=== PATIENT | male | born 1965 | race American Indian/Alaskan Native ===

== ENCOUNTER 2017-04-16 16:29 | Inpatient (IN) | payer MEDICAID ==
[2017-04-16] MEDS ORDERED: Sodium Chloride 0.9% 10 ML Syringe FLUSH PRN (16:33)
[2017-04-16] MEDS ORDERED: Sodium Chloride 0.9% 2.5 ML Syringe FLUSH PRN (16:33)
--- NOTE | 2017-04-16 16:54 | EDM.PDOC ---
ED HPI GENERAL MEDICAL PROBLEM - General Stated Complaint: INTOXICATED Time Seen by Provider: 04/16/17 16:30 Source of Information: Reports: Patient, Police - History of Present Illness INITIAL COMMENTS - FREE TEXT/NARRATIVE: Presents via EMS accompanied by law enforcement. Law enforcement states that they got a call from a home upper leather sorter who found the patient lying in his yard. Upon arrival they were concerned that the patient was intoxicated or otherwise medically incapacitated and so they called EMS. Upon arrival the patient is alert and cooperative but is quite shaky. He is orientated to person and place and month, not year. He answers all questions appropriately but has to think about the answer for quite a while. - Related Data Allergies Allergy/AdvReac Type Severity Reaction Status Date / Time No Known Allergies Allergy Verified 04/16/17 16:53 Home Meds: Home Meds . [No Known Home Meds] 07/23/16 [History] . [Unable to Verify Home Med List] 12/31/16 [History] Past Medical History - Past Health History Medical/Surgical History: Denies Medical/Surgical History HEENT History: Reports: None Cardiovascular History: Reports: Hypertension, None Respiratory History: Reports: None Gastrointestinal History: Reports: GERD, GI Bleed Genitourinary History: Reports: None Musculoskeletal History: Reports: None Neurological History: Reports: None Psychiatric History: Reports: Addiction Endocrine/Metabolic History: Reports: None Oncologic (Cancer) History: Reports: None Dermatologic History: Reports: None - Past Surgical History Head Surgeries/Procedures: Reports: None Cardiovascular Surgical History: Reports: None Respiratory Surgical History: Reports: None GI Surgical History: Reports: Colonoscopy, EGD Male Surgical History: Reports: None Musculoskeletal Surgical History: Reports: None Social & Family History - Family History Family Medical History: Noncontributory - Tobacco Use Smoking Status *Q: Current Every Day Smoker Years of Tobacco use: 30 Packs/Tins Daily: 1 Used Tobacco, but Quit: No Second Hand Smoke Exposure: No - Caffeine Use Caffeine Use: Reports: None - Alcohol Use Days Per Week of Alcohol Use: 7 Number of Drinks Per Day: 12 Total Drinks Per Week: 84 - Recreational Drug Use Recreational Drug Use: No - Living Situation & Occupation Living situation: Reports: with Family, Other Occupation: Unemployed ED ROS GENERAL - Review of Systems Review Of Systems: See Below Constitutional: Reports: No Symptoms HEENT: Reports: No Symptoms Respiratory: Reports: No Symptoms Cardiovascular: Reports: No Symptoms Endocrine: Reports: No Symptoms GI/Abdominal: Reports: No Symptoms : Reports: No Symptoms Musculoskeletal: Reports: Other (When asked about the bruises on his left shoulder left thorax and abdomen and left hip the patient states that he fell last . He denies any pain or tenderness to those areas) Skin: Reports: Bruising, Other (Unkempt appearance) Neurological: Reports: Tremors Psychiatric: Reports: Other (Slow to answer appropriately) Hematologic/Lymphatic: Reports: No Symptoms Immunologic: Reports: No Symptoms ED EXAM, BEHAVIORAL HEALTH - Physical Exam Exam: See Below Exam Limited By: Intoxication General Appearance: Alert, Other (Takes a couple of minutes for him to answer questions but does so appropriately) Eye Exam: Bilateral Eye: Conjunctival Injection, Other (Dilated 5-6 without accommodation. Light yellow crusty dry discharge around eyes) Ears: Normal External Exam, Normal TMs, Other (A lot of scaling in the canals) Nose: Nasal Drainage (Light yellow and crusty) Throat/Mouth: Normal Inspection Head: Atraumatic, Normocephalic Respiratory/Chest: No Respiratory Distress, Lungs Clear, Normal Breath Sounds Cardiovascular: Normal Peripheral Pulses, Regular Rate, Rhythm, No Murmur GI/Abdominal: Soft, Non-Tender, No Distention (Male) Exam: Normal Inspection Back Exam: Normal Inspection Extremities: Normal Inspection, Other (Left shoulder bruise superiorly. Patient denies tenderness. Full range of motion of the left shoulder without hesitation or limitation) Neurological: Alert, Oriented x 3 (Person place month, not year) Psychiatric: Alert, Flat Affect Skin Exam: Warm, Dry, Intact, Normal color, No rash, Other (Bruise to left superior shoulder, bruises of various colors, to left lower chest left abdomen and left hip) COURSE, BEHAVIORAL HEALTH COMP - Course Vital Signs: Last Vital Signs Temp 98.5 F 04/16/17 16:50 Pulse 89 04/16/17 16:50 Resp 18 04/16/17 16:50 BP 152/94 H 04/16/17 16:50 Pulse Ox 94 L 04/16/17 16:50 Orders, Labs, Meds: Active Orders 24 hr Category Date Time Status EKG 12 Lead [EKG Documentation Completion] [RC] URGENT Care 04/16/17 16:32 Active Head wo Cont [CT] Stat Exams 04/16/17 16:31 Taken Sodium Chloride 0.9% [Saline Flush] Med 04/16/17 16:33 Active 10 ml FLUSH ASDIRECTED PRN Sodium Chloride 0.9% [Saline Flush] Med 04/16/17 16:33 Active 2.5 ml FLUSH ASDIRECTED PRN Saline Lock Insert [OM.PC] Stat Oth 04/16/17 16:33 Ordered Medication Orders Sodium Chloride (Saline Flush) 10 ml FLUSH ASDIRECTED PRN PRN Reason: Keep Vein Open Last Admin: 04/16/17 18:26 Dose: 10 ml Sodium Chloride (Saline Flush) 2.5 ml FLUSH ASDIRECTED PRN PRN Reason: Keep Vein Open Last Admin: 04/16/17 18:26 Dose: 2.5 ml Laboratory Tests 04/16/17 04/16/17 Range/Units 16:53 16:53 WBC 3.17 L (4.0-11.0) K/uL RBC 4.60 (4.50-5.90) M/uL Hgb 11.2 L (13.0-17.0) g/dL Hct 34.4 L (38.0-50.0) % MCV 74.8 L (80.0-98.0) fL MCH 24.3 L (27.0-32.0) pg MCHC 32.6 (31.0-37.0) g/dL RDW Std Deviation 51.5 (28.0-62.0) fl RDW Coeff of Satish 19 H (11.0-15.0) % Plt Count 30 L (150-400) K/uL Neut % (Auto) 68.5 (48.0-80.0) % Lymph % (Auto) 15.5 L (16.0-40.0) % Upton % (Auto) 15.1 H (0.0-15.0) % Eos % (Auto) 0.3 (0.0-7.0) % Baso % (Auto) 0.6 (0.0-1.5) % Neut # (Auto) 2.2 (1.4-5.7) K/uL Lymph # (Auto) 0.5 L (0.6-2.4) K/uL Upton # (Auto) 0.5 (0.0-0.8) K/uL Eos # (Auto) 0.0 (0.0-0.7) K/uL Baso # (Auto) 0.0 (0.0-0.1) K/uL Nucleated RBC % 0.8 /100WBC Nucleated RBCs # 0 K/uL Sodium 124 L (136-146) mmol/L Potassium 3.4 L (3.5-5.1) mmol/L Chloride 88 L (98-110) mmol/L Carbon Dioxide 17 L (21-31) mmol/L BUN 3 L (6.0-23.0) mg/dL Creatinine 0.6 (0.6-1.5) mg/dL Est Cr Clr Drug Dosing TNP Estimated GFR (MDRD) > 60.0 ml/min Glucose 124 H (60-110) mg/dL Calcium 8.4 L (8.8-10.8) mg/dL Total Bilirubin 4.4 H (0.1-1.5) mg/dL AST 166 H (5-40) IU/L ALT 76 H (8-54) IU/L Alkaline Phosphatase 103 (40-150) Total Protein 8.0 (6.0-8.0) g/dL Albumin 3.8 (3.5-5.0) g/dL Globulin 4.2 H (2.0-3.5) g/dL Albumin/Globulin Ratio 0.9 L (1.3-2.8) Medications Generic Name Dose Route Start Last Admin Trade Name Freq PRN Reason Stop Dose Admin Sodium Chloride 10 ml 04/16/17 16:33 04/16/17 18:26 Saline Flush FLUSH 10 ml ASDIRECTED PRN Administration Keep Vein Open Sodium Chloride 2.5 ml 04/16/17 16:33 04/16/17 18:26 Saline Flush FLUSH 2.5 ml ASDIRECTED PRN Administration Keep Vein Open Discontinued Medications Generic Name Dose Route Start Last Admin Trade Name Freq PRN Reason Stop Dose Admin Sodium Chloride 1,000 mls @ 999 mls/hr 04/16/17 17:06 04/16/17 18:25 Normal Saline IV 04/16/17 18:06 999 mls/hr STAT ONE Administration Ondansetron HCl 4 mg 04/16/17 17:51 04/16/17 18:25 Zofran IVPUSH 04/16/17 17:52 4 mg ONETIME ONE Administration Re-Assessment/Re-Exam: Responding more quickly now and is alert and orientated. Departure - Departure Time of Disposition: 18:17 Disposition: Home, Self-Care 01 Condition: fair Clinical Impression: Alcohol intoxication Qualifiers: Complication of substance-induced condition: uncomplicated Qualified Code(s): F10.920 - Alcohol use, unspecified with intoxication, uncomplicated - Discharge Information Instructions: Alcohol Intoxication, [id number] Referrals: Lupe Hager POULTRY PATHOLOGIST [Ordering Only Provider] - Forms: ED Department Discharge Additional Instructions: 1. Please refrain from drinking alcohol--forever. Instead, drink plenty of water and electrolyte solutions such as Gatorade. 2. followup with your primary care provider Lupe Hager. Care Plan Goals: addendum: He is thought to not be able to care for self at home. He still seems slightly confused and cannot safely ambulate. He urinated in the bed. He will be admitted to observation for monitoring. See orders. Dyllan Herrera MD
[2017-04-16] MEDS ORDERED: Sodium Chloride 0.9% 1,000 ML IV ONE (17:06)
[2017-04-16 17:27] LABS: CHLORIDE,CL 88 mmol/L (98-110); SODIUM,NA 124 mmol/L (136-146)
[2017-04-16] MEDS ORDERED: Ondansetron 4 MG/2 ML SDV IVPUSH ONE (17:51)
[2017-04-16] MEDS ORDERED: MVI, Adult with Vitamin K 10 ML, Thiamine 100 MG, Folic Acid 1 MG in Sodium Chloride 0.... IV ONE ×4 (19:46)
[2017-04-16] MEDS ORDERED: Acetaminophen 325 MG Tab PO PRN (19:46)
[2017-04-16] MEDS ORDERED: Temazepam 15 MG Cap PO PRN (19:46)
[2017-04-16] MEDS ORDERED: LORazepam 2 MG/ML MDV IVPUSH PRN (19:46)
[2017-04-16] MEDS ORDERED: Ondansetron 4 MG/2 ML SDV IVPUSH PRN (19:46)
[2017-04-16] MEDS ORDERED: NS + KCl 20mEq/L 1,000 ML IV SCH (20:00)
[2017-04-16] MEDS: Erythromycin Base 0.5% Ophth Oint 1 GM Tube EYEBOTH SCH (21:47)
[2017-04-16 22:14] LABS: CHLORIDE,CL 98 mmol/L (98-110); SODIUM,NA 132 mmol/L (136-146)
[2017-04-16] MEDS ORDERED: Potassium Chloride 20 MEQ Tab.ER PO ONE (22:59)
[2017-04-16] MEDS ORDERED: Erythromycin Base 0.5% Ophth Oint 1 GM Tube ONE (23:30)
[2017-04-17] MEDS ORDERED: Magnesium Sulfate (4.06 MEQ/ML) 1 GM/2 ML SDV IM ONE (00:19)
[2017-04-17] MEDS ORDERED: Potassium Chloride 20 MEQ Tab.ER PO ONE (00:19)
[2017-04-17] MEDS: Pantoprazole 40 MG in Sodium Chloride 0.9% 10 ML IVPUSH SCH ×2 (00:46→08:24)
[2017-04-17] MEDS ORDERED: Magnesium Sulfate/Water 2 GM in Premix Bag 1 BAG IV ONE (01:23)
[2017-04-17 05:14] LABS: CHLORIDE,CL 105 mmol/L (98-110); SODIUM,NA 136 mmol/L (136-146)
[2017-04-17] MEDS: Erythromycin Base 0.5% Ophth Oint 1 GM Tube EYEBOTH SCH (08:06)
[2017-04-17] MEDS ORDERED: D5 1/2 NS w/ 20 mEq/L KCl 1,000 ML IV SCH (08:30)
--- NOTE | 2017-04-17 10:15 | CT ---
EXAM DATE: 04/16/17 PATIENT'S AGE: 52 Patient: HAIDER LOPEZ Facility: [place], [place] Site . Site : 1965 Study: CT Head [id number]/16/2017 5:37:05 PM Ordering Physician: Doctor Manzo Final Report: INDICATION: Found intoxicated, pupils dilated. TECHNIQUE: CT head without i.v. contrast. COMPARISON: None FINDINGS: CSF spaces: Within normal limits for age. Brain parenchyma: The brain parenchyma is normal in appearance with preservation of the mistry-white differentiation. No sign of mass, hemorrhage, or midline shift seen. Skull base and calvarium: Minimal mucosal thickening of the bilateral maxillary sinuses. The mastoid air cells are clear. The visualized orbits are grossly unremarkable. No skull fractures are seen. IMPRESSION: 1. No evidence of acute infarction, intracranial hemorrhage, or mass effect seen. Dictated by Dyllan Barragan MD @ 04/16/2017 6:00:48 PM Dictated by: Dyllan Barragan MD @ 04/16/2017 18:00:54 (Electronic Signature) Report Signed by Proxy. [facility]ENTERRamón
--- NOTE | 2017-04-17 10:21 | CR ---
EXAM DATE: 04/16/17 PATIENT'S AGE: 52 Patient: HAIDER LOPEZ Facility: [place], [place] Site . Site : 1965 Study: XRay Chest [id number]/16/2017 10:29:45 PM Ordering Physician: Sharon Mijares Final Report: Indication: Hypoxia Technique: Chest 1 view. Comparison: December 31, 2016 Findings: Cardiovascular and mediastinum: Heart size and vasculature are normal in caliber and appearance. Mediastinum is within normal limits. Lungs and pleural space: Linear atelectasis at the left lung base. No focal consolidation. No sign of pleural effusion. No pneumothorax. Bones and soft tissues: Remote left mid clavicle fracture. Impression: Linear atelectasis at left lung base. No focal consolidation. Dictated by Marla Ceballos MD @ Apr 16 2017 10:32PM (Electronic Signature) Report Signed by Proxy. [facility]
--- NOTE | 2017-04-17 10:49 | PCM.HP ---
H&P History of Present Illness - General Date of Service: 04/17/17 Admit Problem/Dx: Admission Diagnosis/Problem Admission Diagnosis/Problem Alcohol intoxication Source of Information: Patient History Limitations: Reports: Intoxication - History of Present Illness Initial Comments - Free Text/Narative: 52 yo male was admitted for alcohol intoxication. His BAL was 0.447 at admission. He was given a banana bag in the ED and had electrolytes replaced. At admission 04/16/17 1600 his Hb was 11.2 and his platelet count was 30. Today 0400 his Hb was 9.8 and his platelet count was 13. Patient is more awake and sightly more responsive. He states that his stool has been black for few days. He also has history of esophageal varices which according to him were clipped in December 2016. He denies any vomiting or hematemesis. His last alcoholic beverage was 04/16/17. He state that he had 8 beers but prior to that he was off alcohol for 3 months. - Related Data Allergies/Adverse Reactions: Allergies Allergy/AdvReac Type Severity Reaction Status Date / Time No Known Allergies Allergy Verified 04/16/17 16:53 Home Medications: Home Meds . [No Known Home Meds] 07/23/16 [History] . [Unable to Verify Home Med List] 12/31/16 [History] Past Medical History - Past Health History Medical/Surgical History: Denies Medical/Surgical History HEENT History: Reports: None Cardiovascular History: Reports: Hypertension, None Respiratory History: Reports: None Gastrointestinal History: Reports: GERD, GI Bleed Genitourinary History: Reports: None Musculoskeletal History: Reports: None Neurological History: Reports: None Psychiatric History: Reports: Addiction Endocrine/Metabolic History: Reports: None Oncologic (Cancer) History: Reports: None Dermatologic History: Reports: None - Past Surgical History Head Surgeries/Procedures: Reports: None Cardiovascular Surgical History: Reports: None Respiratory Surgical History: Reports: None GI Surgical History: Reports: Colonoscopy, EGD Male Surgical History: Reports: None Musculoskeletal Surgical History: Reports: None Social & Family History - Family History Family Medical History: Noncontributory - Tobacco Use Smoking Status *Q: Current Every Day Smoker Years of Tobacco use: 30 Packs/Tins Daily: 1 Used Tobacco, but Quit: No Second Hand Smoke Exposure: No - Caffeine Use Caffeine Use: Reports: Coffee - Alcohol Use Days Per Week of Alcohol Use: 7 Number of Drinks Per Day: 10 Total Drinks Per Week: 70 - Recreational Drug Use Recreational Drug Use: No - Living Situation & Occupation Living situation: Reports: with Family, Other Occupation: Unemployed H&P Review of Systems - Review of Systems: Review Of Systems: ROS reveals no pertinent complaints other than HPI. Exam - Exam Exam: See Below - Vital Signs Vital Signs: Last Vital Signs Temp 37.8 C 04/17/17 08:00 Pulse 56 L 04/16/17 20:53 Resp 13 04/17/17 10:00 BP 123/66 04/17/17 10:00 Pulse Ox 94 L 04/17/17 10:00 Weight: 91.4 kg - Exam General: Mild Distress HEENT: Scleral Icterus Neck: Supple Lungs: Clear to Auscultation Cardiovascular: Regular Rhythm, Tachycardia Abdomen: Tenderness Extremities: No: Edema Skin: Petechia, Ecchymosis Neurological: Cranial Nerves Intact, Reflexes Equal Bilateral Neuro Extensive - Mental Status: Disorientation to Time, Slow Response to Commands Psychiatric: Anxious, Withdrawal Symptoms - Patient Data Lab Results last 24 hrs: Laboratory Results - last 24 hr 04/16/17 04/16/17 04/16/17 Range/Units 21:49 21:49 21:49 WBC (4.0-11.0) K/uL RBC (4.50-5.90) M/uL Hgb (13.0-17.0) g/dL Hct (38.0-50.0) % MCV (80.0-98.0) fL MCH (27.0-32.0) pg MCHC (31.0-37.0) g/dL RDW Std Deviation (28.0-62.0) fl RDW Coeff of Satish (11.0-15.0) % Plt Count (150-400) K/uL Add Manual Diff Neutrophils % (Manual) (48.0-80.0) % Lymphocytes % (Manual) (16.0-40.0) % Monocytes % (Manual) (0.0-15.0) % Eosinophils % (Manual) (0.0-7.0) % Nucleated RBC % /100WBC Absolute Seg Neuts Lymphocytes # (Manual) Monocytes # (Manual) Eosinophils # (Manual) Nucleated RBCs # K/uL INR 1.28 H (0.86-1.11) APTT 34.1 H (18.6-31.3) SEC Sodium 132 L (136-146) mmol/L Potassium 3.4 L (3.5-5.1) mmol/L Chloride 98 (98-110) mmol/L Carbon Dioxide 20 L (21-31) mmol/L BUN 3 L (6.0-23.0) mg/dL Creatinine 0.6 (0.6-1.5) mg/dL Est Cr Clr Drug Dosing 149.07 mL/min Estimated GFR (MDRD) > 60.0 ml/min Glucose 99 (60-110) mg/dL Calcium 7.7 L (8.8-10.8) mg/dL Magnesium (1.5-2.3) mEq/L Total Bilirubin (0.1-1.5) mg/dL AST (5-40) IU/L ALT (8-54) IU/L Alkaline Phosphatase (40-150) Total Protein (6.0-8.0) g/dL Albumin (3.5-5.0) g/dL Globulin (2.0-3.5) g/dL Albumin/Globulin Ratio (1.3-2.8) Urine Opiates Screen (NEGATIVE) Ur Oxycodone Screen (NEGATIVE) Urine Methadone Screen (NEGATIVE) Ur Barbiturates Screen (NEGATIVE) Ur Phencyclidine Scrn (NEGATIVE) Ur Amphetamine Screen (NEGATIVE) U Methamphetamines Scrn (NEGATIVE) U Benzodiazepines Scrn (NEGATIVE) U Cocaine Metab Screen (NEGATIVE) U Marijuana (THC) Screen (NEGATIVE) 04/16/17 04/17/17 04/17/17 Range/Units 21:49 04:00 04:39 WBC 2.49 L (4.0-11.0) K/uL RBC 4.01 L (4.50-5.90) M/uL Hgb 9.8 L (13.0-17.0) g/dL Hct 30.8 L (38.0-50.0) % MCV 76.8 L (80.0-98.0) fL MCH 24.4 L (27.0-32.0) pg MCHC 31.8 (31.0-37.0) g/dL RDW Std Deviation 53.7 (28.0-62.0) fl RDW Coeff of Satish 19 H (11.0-15.0) % Plt Count 13 L (150-400) K/uL Add Manual Diff YES Neutrophils % (Manual) 67 (48.0-80.0) % Lymphocytes % (Manual) 17 (16.0-40.0) % Monocytes % (Manual) 14 (0.0-15.0) % Eosinophils % (Manual) 2 (0.0-7.0) % Nucleated RBC % 0.0 /100WBC Absolute Seg Neuts 1.7 Lymphocytes # (Manual) 0.4 Monocytes # (Manual) 0.3 Eosinophils # (Manual) 0 Nucleated RBCs # 0 K/uL INR (0.86-1.11) APTT (18.6-31.3) SEC Sodium (136-146) mmol/L Potassium (3.5-5.1) mmol/L Chloride (98-110) mmol/L Carbon Dioxide (21-31) mmol/L BUN (6.0-23.0) mg/dL Creatinine (0.6-1.5) mg/dL Est Cr Clr Drug Dosing mL/min Estimated GFR (MDRD) ml/min Glucose (60-110) mg/dL Calcium (8.8-10.8) mg/dL Magnesium 1.5 (1.5-2.3) mEq/L Total Bilirubin (0.1-1.5) mg/dL AST (5-40) IU/L ALT (8-54) IU/L Alkaline Phosphatase (40-150) Total Protein (6.0-8.0) g/dL Albumin (3.5-5.0) g/dL Globulin (2.0-3.5) g/dL Albumin/Globulin Ratio (1.3-2.8) Urine Opiates Screen NEGATIVE (NEGATIVE) Ur Oxycodone Screen NEGATIVE (NEGATIVE) Urine Methadone Screen NEGATIVE (NEGATIVE) Ur Barbiturates Screen NEGATIVE (NEGATIVE) Ur Phencyclidine Scrn NEGATIVE (NEGATIVE) Ur Amphetamine Screen NEGATIVE (NEGATIVE) U Methamphetamines Scrn NEGATIVE (NEGATIVE) U Benzodiazepines Scrn NEGATIVE (NEGATIVE) U Cocaine Metab Screen NEGATIVE (NEGATIVE) U Marijuana (THC) Screen NEGATIVE (NEGATIVE) 04/17/17 Range/Units 04:39 WBC (4.0-11.0) K/uL RBC (4.50-5.90) M/uL Hgb (13.0-17.0) g/dL Hct (38.0-50.0) % MCV (80.0-98.0) fL MCH (27.0-32.0) pg MCHC (31.0-37.0) g/dL RDW Std Deviation (28.0-62.0) fl RDW Coeff of Satish (11.0-15.0) % Plt Count (150-400) K/uL Add Manual Diff Neutrophils % (Manual) (48.0-80.0) % Lymphocytes % (Manual) (16.0-40.0) % Monocytes % (Manual) (0.0-15.0) % Eosinophils % (Manual) (0.0-7.0) % Nucleated RBC % /100WBC Absolute Seg Neuts Lymphocytes # (Manual) Monocytes # (Manual) Eosinophils # (Manual) Nucleated RBCs # K/uL INR (0.86-1.11) APTT (18.6-31.3) SEC Sodium 136 (136-146) mmol/L Potassium 4.1 (3.5-5.1) mmol/L Chloride 105 (98-110) mmol/L Carbon Dioxide 21 (21-31) mmol/L BUN 3 L (6.0-23.0) mg/dL Creatinine 0.6 (0.6-1.5) mg/dL Est Cr Clr Drug Dosing 149.07 mL/min Estimated GFR (MDRD) > 60.0 ml/min Glucose 94 (60-110) mg/dL Calcium 7.7 L (8.8-10.8) mg/dL Magnesium 2.1 (1.5-2.3) mEq/L Total Bilirubin 3.8 H (0.1-1.5) mg/dL AST 196 H (5-40) IU/L ALT 70 H (8-54) IU/L Alkaline Phosphatase 88 (40-150) Total Protein 6.6 (6.0-8.0) g/dL Albumin 3.3 L (3.5-5.0) g/dL Globulin 3.3 (2.0-3.5) g/dL Albumin/Globulin Ratio 1.0 L (1.3-2.8) Urine Opiates Screen (NEGATIVE) Ur Oxycodone Screen (NEGATIVE) Urine Methadone Screen (NEGATIVE) Ur Barbiturates Screen (NEGATIVE) Ur Phencyclidine Scrn (NEGATIVE) Ur Amphetamine Screen (NEGATIVE) U Methamphetamines Scrn (NEGATIVE) U Benzodiazepines Scrn (NEGATIVE) U Cocaine Metab Screen (NEGATIVE) U Marijuana (THC) Screen (NEGATIVE) Result Diagrams: 04/17/17 04:39 04/17/17 04:39 *Q Meaningful Use (ADM) - VTE *Q VTE Criteria *Q: - Stroke *Q Stroke Criteria *Q: - AMI *Q AMI Criteria *Q: Problem List Initiated/Reviewed/Updated: Yes Orders Last 24hrs: Active Orders 24 hr Category Date Time Status Admission Status [Patient Status] [ADT] Routine ADT 04/16/17 19:50 Active Oxygen Therapy [RC] PRN Care 04/16/17 19:59 Active Vital Signs [RC] Q1H Care 04/16/17 19:59 Active Abdomen Ltd [US] Routine Exams 04/17/17 20:00 Taken D5 1/2 NS w/ 20 mEq/L KCl 1,000 ml Med 04/17/17 08:30 Active IV ASDIRECTED Pantoprazole [ProTONIX IV] 40 mg Med 04/16/17 23:00 Active Sodium Chloride 0.9% [Normal Saline] 10 ml IVPUSH DAILY Medication Orders Acetaminophen (Tylenol) 650 mg PO Q4H PRN PRN Reason: Pain (Mild 1-3)/fever Pantoprazole Sodium 40 mg/ (Sodium Chloride) 10 mls @ 300 mls/hr IVPUSH DAILY [facility] Last Admin: 04/17/17 08:24 Dose: 300 mls/hr Infusion: 04/17/17 00:48 Dose: 300 mls/hr Admin: 04/17/17 00:46 Dose: 300 mls/hr Potassium Chloride/Dextrose/Sod Cl (D5 1/2 Ns W/ 20 Meq/L Kcl) 1,000 mls @ 75 mls/hr IV ASDIRECTED ELINA Last Admin: 04/17/17 09:27 Dose: 75 mls/hr Lorazepam (Ativan) 0 mg IVPUSH Q4H PRN; Protocol PRN Reason: Other Ondansetron HCl (Zofran) 4 mg IVPUSH Q4H PRN PRN Reason: Nausea Sodium Chloride (Saline Flush) 10 ml FLUSH ASDIRECTED PRN PRN Reason: Keep Vein Open Last Admin: 04/16/17 18:26 Dose: 10 ml Sodium Chloride (Saline Flush) 2.5 ml FLUSH ASDIRECTED PRN PRN Reason: Keep Vein Open Last Admin: 04/16/17 18:26 Dose: 2.5 ml Temazepam (Restoril) 15 mg PO BEDTIME PRN PRN Reason: Sleep Assessment/Plan Comment:: Assessment: 1. Thrombocytopenia 2. Anemia 3. Melena 4. alcohol Intoxication 5. History of alcohol use disorder 6. history of esophageal varices 7. chronic Liver Disease Plan: Due to patients high risk status he will be transferred to [facility]. Receiving Physician is Dr. Hang Crooks. He will be transferred to their ICU. He will be airlifted due to rapid decline of his Platelets and Hb. We will continue D5 1/2 NS with K 20 meq during transfer.
[2017-04-17 11:24] VITALS: BP 129/68
--- NOTE | 2017-04-17 11:32 | US ---
EXAMINATION: Right upper quadrant ultrasound HISTORY: Elevated liver enzymes COMPARISON: None TECHNIQUE: Grayscale and color Doppler images obtained of the right upper quadrant. FINDINGS: The visualized pancreas appears normal. There is at least moderately increased in generali zed echotexture without a focal hepatic mass. The gallbladder wall thickness is normal. No perichole cystic fluid or shadowing gallstones. The common bile duct measures 4 mm. No free pelvic fluid. The right kidney measures 12 cm [id number] without evidence of hydronephrosis. Negative sonographic Mu rphy sign. IMPRESSION: 1. Coarse hepatic echotexture consistent with fatty infiltration or hepatocellular disease.
== END 2017-04-17 11:55 | DRG 897 ==
LOC: MW.ED 16:29 → MW.ICU 19:50
PROVIDERS: ADMIT Family Medicine; ATTEND Family Medicine
DX: F10.920 Alcohol use, unspecified with intoxication, uncomplicated (principal); K92.1 Melena; I85.00 Esophageal varices without bleeding; D69.6 Thrombocytopenia, unspecified; D64.9 Anemia, unspecified; I10 Essential (primary) hypertension; K21.9 Gastro-esophageal reflux disease without esophagitis; F17.200 Nicotine dependence, unspecified, uncomplicated; K76.9 Liver disease, unspecified
CPT/HCPCS: 36415; 70450; 70450-26; 71010; 71010-26; 76705; 76705-26; 80048; 80053; 80305; 83735; 85025; 85610; 85730; 93005; 96361; 96374; 99283; 99285-25; A9270-GY; C9113; G0480; J2405; J3411; J3475; J3480; J7040

== ENCOUNTER 2017-07-18 19:11 | Emergency (ER) | payer MEDICAID ==
--- NOTE | 2017-07-18 19:14 | EDM.PDOC ---
ED HPI GENERAL MEDICAL PROBLEM - General Stated Complaint: UNK Time Seen by Provider: 07/18/17 19:14 Source of Information: Reports: Patient - History of Present Illness INITIAL COMMENTS - FREE TEXT/NARRATIVE: HISTORY AND PHYSICAL: History of present illness: []Patient was found at home by the director medical as he has a court order for psych hold and detox secondary to alcoholism He was found on the couch, intoxicated ...with blood on the couch and his underwear. Patient hasBeen drinking some alcohol he states he has been bleeding since yesterday off and on since yesterday per rectum, ulcer confirms bright red blood however on my guaiac guaiac is trace No fever chills sweats no chest pain shortness breath headache dizziness or palpitation no urine symptoms Review of systems: As per history of present illness and below otherwise all systems reviewed and negative. Past medical history: As per history of present illness and as reviewed below otherwise noncontributory. Surgical history: As per history of present illness and as reviewed below otherwise noncontributory. Social history: No reported history of drug or alcohol abuse. Family history: As per history of present illness and as reviewed below otherwise noncontributory. Physical exam: HEENT: Atraumatic, normocephalic, pupils reactive, negative for conjunctival pallor or scleral icterus, mucous membranes moist, throat clear, neck supple, nontender, trachea midline. Lungs: Clear to auscultation, breath sounds equal bilaterally, chest nontender. Heart: S1S2, regular, negative for clicks, rubs, or JVD. Abdomen: Soft, nondistended, nontender. Negative for masses or hepatosplenomegaly. Negative for costovertebral tenderness. Pelvis: Stable nontender. Genitourinary: Deferred. Rectal: No mass scar or lesion guaiac is trace Extremities: Atraumatic, negative for cords or calf pain. Neurovascular unremarkable. Neuro: Awake, alert, oriented. Cranial nerves II through XII unremarkable. Cerebellum unremarkable. Motor and sensory unremarkable throughout. Exam nonfocal. Diagnostics: []Lab as below EKG Chest 1 view Flat and upright abdomen Therapeutics: []Normal saline 1 L bolus Banana bag 1 50 mL per hour Protonix 80 mg IV Zofran 8 mg IV Impression: Bright red blood per rectum intermittently Alcohol intoxication History of GI bleed, stable at this time Chronic history of baseline Patient does have court order for detox and treatment in [facility], I did speak with Dr. Valadez sepsis care ; more pending Dr. Valadez evaluation and treatment Definitive disposition and diagnosis as appropriate pending reevaluation and review of above. abdominal area Pain Score (Numeric/FACES): 4 - Related Data Allergies Allergy/AdvReac Type Severity Reaction Status Date / Time No Known Allergies Allergy Verified 07/18/17 19:16 Home Meds: Home Meds Ferrous Sulfate 325 mg PO BID 07/18/17 [History] Furosemide [Furosemide] 1 tab PO BID 07/18/17 [History] Nadolol [Nadolol] 1 tab PO BID 07/18/17 [History] Pantoprazole [ProTONIX] 40 mg PO DAILY 07/18/17 [History] Potassium Chloride 1 tab PO DAILY 07/18/17 [History] Spironolactone [Spironolactone] 100 mg PO BID 07/18/17 [History] Past Medical History - Past Health History Medical/Surgical History: Denies Medical/Surgical History HEENT History: Reports: None Cardiovascular History: Reports: Hypertension, None Respiratory History: Reports: None Gastrointestinal History: Reports: GERD, GI Bleed Genitourinary History: Reports: None Musculoskeletal History: Reports: None Neurological History: Reports: None Psychiatric History: Reports: Addiction Endocrine/Metabolic History: Reports: None Oncologic (Cancer) History: Reports: None Dermatologic History: Reports: None - Past Surgical History Head Surgeries/Procedures: Reports: None Cardiovascular Surgical History: Reports: None Respiratory Surgical History: Reports: None GI Surgical History: Reports: Colonoscopy, EGD Male Surgical History: Reports: None Musculoskeletal Surgical History: Reports: None Social & Family History - Family History Family Medical History: Noncontributory - Tobacco Use Smoking Status *Q: Current Every Day Smoker Years of Tobacco use: 30 Packs/Tins Daily: 1 Used Tobacco, but Quit: No Second Hand Smoke Exposure: No - Caffeine Use Caffeine Use: Reports: Coffee - Alcohol Use Days Per Week of Alcohol Use: 7 Number of Drinks Per Day: 10 Total Drinks Per Week: 70 - Recreational Drug Use Recreational Drug Use: No - Living Situation & Occupation Living situation: Reports: with Family, Other Occupation: Unemployed ED ROS GENERAL - Review of Systems Review Of Systems: ROS reveals no pertinent complaints other than HPI. ED EXAM, GENERAL - Physical Exam Exam: See Below Course - Vital Signs Last Recorded V/S: Last Vital Signs Temp 36.8 C 07/18/17 19:16 Pulse 90 07/18/17 20:14 Resp 21 H 07/18/17 20:14 BP 119/66 07/18/17 20:14 Pulse Ox 96 07/18/17 20:14 - Orders/Labs/Meds Orders: Active Orders 24 hr Category Date Time Status EKG Documentation Completion [RC] STAT Care 07/18/17 19:12 Active Abdomen 2V AP Flat Upright [CR] Stat Exams 07/18/17 19:12 Taken Chest 1V Frontal [CR] Stat Exams 07/18/17 19:12 Taken DRUG SCREEN, URINE [URCHEM] Stat Lab 07/18/17 20:44 Received Guaiac [OCCULT BLOOD DIAGNOSTIC] [OP] Stat Lab 07/18/17 20:01 Ordered UA W/MICROSCOPIC [URIN] Stat Lab 07/18/17 20:44 Received MVI, Adult with Vitamin K [Infuvite Adult] 10 ml Med 07/18/17 19:59 Active Thiamine [Vitamin B-1] 100 mg Folic Acid 1 mg Sodium Chloride 0.9% [Normal Saline] 1,000 ml IV ONETIME Medication Orders Multivitamins/Minerals 10 ml/Thiamine HCl 100 mg/ Folic Acid 1 mg/ Sodium Chloride 1,011.2 mls @ 150 mls/hr IV ONETIME ONE Stop: 07/19/17 02:43 Last Admin: 07/18/17 20:25 Dose: 150 mls/hr Labs: Laboratory Tests 07/18/17 07/18/17 07/18/17 Range/Units 19:22 19:22 19:22 WBC 4.10 (4.0-11.0) K/uL RBC 3.80 L (4.50-5.90) M/uL Hgb 12.6 L (13.0-17.0) g/dL Hct 34.1 L (38.0-50.0) % MCV 89.7 (80.0-98.0) fL MCH 33.2 H (27.0-32.0) pg MCHC 37.0 (31.0-37.0) g/dL RDW Std Deviation 47.6 (28.0-62.0) fl RDW Coeff of Satish 15 (11.0-15.0) % Plt Count 68 L (150-400) K/uL MPV 9.70 (7.40-12.00) fL Add Manual Diff YES Neutrophils % (Manual) 64 (48.0-80.0) % Lymphocytes % (Manual) 30 (16.0-40.0) % Monocytes % (Manual) 6 (0.0-15.0) % Nucleated RBC % 0.0 /100WBC Absolute Seg Neuts 2.6 Lymphocytes # (Manual) 1.2 Monocytes # (Manual) 0.2 Nucleated RBCs # 0 K/uL INR 1.14 H (0.86-1.11) Sodium 135 L (136-146) mmol/L Potassium 3.9 (3.5-5.1) mmol/L Chloride 103 (98-110) mmol/L Carbon Dioxide 18 L (21-31) mmol/L BUN 3 L (6.0-23.0) mg/dL Creatinine 0.6 (0.6-1.5) mg/dL Est Cr Clr Drug Dosing 148.70 mL/min Estimated GFR (MDRD) > 60.0 ml/min Glucose 120 H (60-110) mg/dL Calcium 8.0 L (8.8-10.8) mg/dL Total Bilirubin 2.1 H (0.1-1.5) mg/dL AST 59 H (5-40) IU/L ALT 32 (8-54) IU/L Alkaline Phosphatase 101 (40-150) Troponin I (0.0-0.29) NG/ML Total Protein 7.0 (6.0-8.0) g/dL Albumin 3.4 L (3.5-5.0) g/dL Globulin 3.6 H (2.0-3.5) g/dL Albumin/Globulin Ratio 0.9 L (1.3-2.8) TSH 3rd Generation (0.47-5.0) uIU/mL Ethyl Alcohol 401.7 mg/dL Blood Type Antibody Screen 07/18/17 07/18/17 07/18/17 Range/Units 19:22 19:22 19:22 WBC (4.0-11.0) K/uL RBC (4.50-5.90) M/uL Hgb (13.0-17.0) g/dL Hct (38.0-50.0) % MCV (80.0-98.0) fL MCH (27.0-32.0) pg MCHC (31.0-37.0) g/dL RDW Std Deviation (28.0-62.0) fl RDW Coeff of Satish (11.0-15.0) % Plt Count (150-400) K/uL MPV (7.40-12.00) fL Add Manual Diff Neutrophils % (Manual) (48.0-80.0) % Lymphocytes % (Manual) (16.0-40.0) % Monocytes % (Manual) (0.0-15.0) % Nucleated RBC % /100WBC Absolute Seg Neuts Lymphocytes # (Manual) Monocytes # (Manual) Nucleated RBCs # K/uL INR (0.86-1.11) Sodium (136-146) mmol/L Potassium (3.5-5.1) mmol/L Chloride (98-110) mmol/L Carbon Dioxide (21-31) mmol/L BUN (6.0-23.0) mg/dL Creatinine (0.6-1.5) mg/dL Est Cr Clr Drug Dosing mL/min Estimated GFR (MDRD) ml/min Glucose (60-110) mg/dL Calcium (8.8-10.8) mg/dL Total Bilirubin (0.1-1.5) mg/dL AST (5-40) IU/L ALT (8-54) IU/L Alkaline Phosphatase (40-150) Troponin I < 0.10 (0.0-0.29) NG/ML Total Protein (6.0-8.0) g/dL Albumin (3.5-5.0) g/dL Globulin (2.0-3.5) g/dL Albumin/Globulin Ratio (1.3-2.8) TSH 3rd Generation 0.95 (0.47-5.0) uIU/mL Ethyl Alcohol mg/dL Blood Type O POSITIVE Antibody Screen NEGATIVE Meds: Medications Generic Name Dose Route Start Last Admin Trade Name Freq PRN Reason Stop Dose Admin Multivitamins/Minerals 10 ml/ 1,011.2 mls @ 150 mls/hr 07/18/17 19:59 20:25 Thiamine HCl 100 mg/ Folic IV 07/19/17 02:43 150 mls/hr Acid 1 mg/ Sodium Chloride ONETIME ONE Administration Discontinued Medications Generic Name Dose Route Start Last Admin Trade Name Luca PRN Reason Stop Dose Admin Sodium Chloride 1,000 mls @ 999 mls/hr 07/18/17 19:54 07/18/17 20:06 Normal Saline IV 07/18/17 20:54 999 mls/hr STAT ONE Administration Ondansetron HCl 8 mg 07/18/17 19:54 07/18/17 20:06 Zofran IVPUSH 07/18/17 19:55 8 mg ONETIME ONE Administration Pantoprazole Sodium 80 mg 07/18/17 19:54 07/18/17 20:11 Protonix Iv IVPUSH 07/18/17 19:55 80 mg .BOLUS ONE Administration Departure - Departure Time of Disposition: 20:59 Disposition: DC/Tfer to Other 70 Condition: Fair Clinical Impression: Alcohol intoxication Qualifiers: Complication of substance-induced condition: uncomplicated Qualified Code(s): F10.920 - Alcohol use, unspecified with intoxication, uncomplicated GI bleed Qualifiers: GI bleed type/associated pathology: melena Qualified Code(s): K92.1 - Melena - Discharge Information - My Orders Last 24 Hours: My Active Orders 07/18/17 19:12 EKG Documentation Completion [RC] STAT Abdomen 2V AP Flat Upright [CR] Stat Chest 1V Frontal [CR] Stat 07/18/17 19:59 MVI, Adult with Vitamin K [Infuvite Adult] 10 ml Thiamine [Vitamin B-1] 100 mg Folic Acid 1 mg Sodium Chloride 0.9% [Normal Saline] 1,000 ml IV ONETIME 07/18/17 20:01 Guaiac [OCCULT BLOOD DIAGNOSTIC] [OP] Stat 07/18/17 20:44 DRUG SCREEN, URINE [URCHEM] Stat UA W/MICROSCOPIC [URIN] Stat - Assessment/Plan Last 24 Hours: My Active Orders 07/18/17 19:12 EKG Documentation Completion [RC] STAT Abdomen 2V AP Flat Upright [CR] Stat Chest 1V Frontal [CR] Stat 07/18/17 19:59 MVI, Adult with Vitamin K [Infuvite Adult] 10 ml Thiamine [Vitamin B-1] 100 mg Folic Acid 1 mg Sodium Chloride 0.9% [Normal Saline] 1,000 ml IV ONETIME 07/18/17 20:01 Guaiac [OCCULT BLOOD DIAGNOSTIC] [OP] Stat 07/18/17 20:44 DRUG SCREEN, URINE [URCHEM] Stat UA W/MICROSCOPIC [URIN] Stat
[2017-07-18 19:53] LABS: CHLORIDE,CL 103 mmol/L (98-110); SODIUM,NA 135 mmol/L (136-146)
[2017-07-18] MEDS ORDERED: Ondansetron 4 MG/2 ML SDV IVPUSH ONE (19:54)
[2017-07-18] MEDS ORDERED: Pantoprazole 40 MG Vial IVPUSH ONE (19:54)
[2017-07-18] MEDS ORDERED: Sodium Chloride 0.9% 1,000 ML IV ONE (19:54)
[2017-07-18] MEDS ORDERED: MVI, Adult with Vitamin K 10 ML, Thiamine 100 MG, Folic Acid 1 MG in Sodium Chloride 0.... IV ONE ×4 (19:59)
[2017-07-18 21:48] VITALS: BP 132/72
--- NOTE | 2017-07-19 15:42 | CR ---
EXAM DATE: 07/18/17 PATIENT'S AGE: 52 Patient: HAIDER LOPEZ Facility: [place], [place] Site . Site : 1965 Study: XRay Chest [id number]/17/2017 8:09:53 PM Ordering Physician: Doctor Manzo Final Report: INDICATION: Vomiting, bloody stool, ETOH. TECHNIQUE: Chest radiograph 1 view COMPARISON: 04/16/2017. FINDINGS: Cardiovascular and mediastinum: The heart silhouette is normal in size and morphology. The mediastinum is normal in appearance. Lungs and pleural spaces: Stable lung markings in the right hemithorax. Linear atelectasis or scarring in the left lower lung zone. No new focal lung opacity identified. Bones and soft tissues: No significant findings. IMPRESSION: 1. No acute abnormality or interval change from 04/16/2017. Dictated by Dyllan Barragan MD @ 07/18/2017 8:36:49 PM Dictated by: Dyllan Barragan MD @ 07/18/2017 20:36:54 (Electronic Signature) Report Signed by Proxy. [facility]
--- NOTE | 2017-07-19 15:43 | CR ---
EXAM DATE: 07/18/17 PATIENT'S AGE: 52 Patient: HAIDER LOPEZ Facility: [place], [place] Site . Site : 1965 Study: XRay Abdomen [id number]/17/2017 8:28:01 PM Ordering Physician: Doctor Manzo Final Report: HISTORY: Bloody stool and vomiting. FINDINGS: One upright and two supine radiographs of the abdomen demonstrates linear atelectasis or scarring in the left lower lung. Heart is normal size. There is no free air under the diaphragm. There is some small bowel gas present in loops distended 2.5 cm. No air-fluid levels are seen. Stool and gas is seen throughout the colon. Right-sided pelvic phlebolith. IMPRESSION: 1. No free air. 2. No bowel obstruction. There is some small bowel gas present in nondilated loops with stool and gas throughout the colon. Dictated by Aurora Blankenship MD @ 07/18/2017 8:47:57 PM Dictated by: Aurora Blankenship MD @ 07/18/2017 20:48:02 (Electronic Signature) Report Signed by Proxy. [facility]
== END 2017-07-18 21:20 | disposition other institution (70) ==
LOC: MW.ED 19:11
DX: F10.120 Alcohol abuse with intoxication, uncomplicated (principal); K92.1 Melena; K21.9 Gastro-esophageal reflux disease without esophagitis; I10 Essential (primary) hypertension; F17.210 Nicotine dependence, cigarettes, uncomplicated; Z79.899 Other long term (current) drug therapy; Y90.8 Blood alcohol level of 240 mg/100 ml or more
CPT/HCPCS: 36415; 71010; 74020; 80053; 80305; 81001; 84443; 84484; 85025; 85610; 86850; 86900; 86901; 93005; 96365; 96375; 99285; C9113; G0480; J2405; J3411; J7040; 99283

== ENCOUNTER 2017-08-18 21:31 | Emergency (ER) | payer MEDICAID ==
[2017-08-18] MEDS ORDERED: Alum Hydrox/Mag Hydrox/Simeth 15 ML, Metoclopramide 5 MG, Lidocaine 2% 5 ML PO ONE ×3 (21:49)
--- NOTE | 2017-08-18 21:55 | EDM.PDOC ---
ED HPI GENERAL MEDICAL PROBLEM - General Chief Complaint: Abdominal Pain Stated Complaint: INTOXICATED/ABDOMINAL PAIN Time Seen by Provider: 08/18/17 21:43 - History of Present Illness INITIAL COMMENTS - FREE TEXT/NARRATIVE: HISTORY AND PHYSICAL: History of present illness: The patient is a 52-year-old male with a history of alcoholism who just recently finished detox in [facility] in [place]--third week in July-- and presents with complaints of upper abdominal pain and drinking alcohol on a daily basis with his last drink one hour prior to coming here. The patient denies any vomiting or diarrhea and has no chest pain or shortness of breath. He says he feels like his abdomen is bloated. When I question him about the detox which was performed in July he said that he did not follow-up and he began to drink again. Patient does have a history of thrombocytopenia hyperbilirubinemia and esophageal varices/GI bleeding. He denies any vomiting or vomiting of blood. Review of systems: As per history of present illness and below otherwise all systems reviewed and negative. Past medical history: As per history of present illness and as reviewed below otherwise noncontributory. Surgical history: As per history of present illness and as reviewed below otherwise noncontributory. Social history: No reported history of drug or alcohol abuse. Family history: As per history of present illness and as reviewed below otherwise noncontributory. Physical exam: Gen.: Well-developed well-nourished man who has alcohol smell on his breath but is speaking clearly in the ED and nontoxic. Vital signs of the note by me. HEENT: Atraumatic, normocephalic, pupils reactive, negative for conjunctival pallor , air is slight scleral icterus, mucous membranes moist, throat clear, neck supple, nontender, trachea midline. Lungs: Clear to auscultation, breath sounds equal bilaterally, chest nontender. Heart: S1S2, regular rate and rhythm no overt murmurs Abdomen: Soft, nondistended, nontender. Abdomen is some slight tympany on percussion in the upper abdomen but there is no rebound and no guarding. Negative for costovertebral tenderness. Pelvis: Stable nontender. Genitourinary: Deferred. Rectal: Deferred. Extremities: Atraumatic, negative for cords or calf pain. Neurovascular unremarkable. Neuro: Awake, alert, oriented. Cranial nerves II through XII unremarkable. Cerebellum unremarkable. Motor and sensory unremarkable throughout. Exam nonfocal. Diagnostics: CBC CMP amylase lipase CT scan of the abdomen and pelvis Therapeutics: GI cocktail protonix Patient has been up walking in the ED without any evidence of ataxia or unsteadiness. Because of the slight elevation in the lipase I will perform a CT scan and if that is negative I will recommend close follow-up as an outpatient as well as referral to outpatient services to help with his alcoholism. I will also advise follow-up lab testing for his platelet count. He currently is not having any complaints of or evidence of any bleeding. His AST today is 81 and it was higher than that at 196 in April of this year, his bilirubin today is 4.2 with a normal ALT alkaline phosphatase and his Bilirubin ranges anywhere round 2.1-3.8 in the past. He's been cautioned that continuing drinking will continue to cause these liver enzymes to elevate and that he needs follow-up provider at [facility], Kasandra Gautamcock or one of our providers to ensure that these are improving. When I informed the patient that he would be discharged home he seemed very upset and didn't understand why would be discharging him home now. I told him that he needs to go home and sleep and call and follow-up in the clinic tomorrow. Impression: Abdominal pain with history of alcohol use/abuse stable, thrombocytopenia and hyperbilirubinemia likely due to alcohol abuse stable Definitive disposition and diagnosis as appropriate pending reevaluation and review of above. abdominal pain Pain Score (Numeric/FACES): 6 - Related Data Allergies Allergy/AdvReac Type Severity Reaction Status Date / Time No Known Allergies Allergy Verified 08/18/17 21:39 Home Meds: Home Meds Ferrous Sulfate 325 mg PO BID 07/18/17 [History] Furosemide [Furosemide] 1 tab PO BID 07/18/17 [History] Nadolol [Nadolol] 1 tab PO BID 07/18/17 [History] Pantoprazole [ProTONIX] 40 mg PO DAILY 07/18/17 [History] Potassium Chloride 1 tab PO DAILY 07/18/17 [History] Spironolactone [Spironolactone] 100 mg PO BID 07/18/17 [History] Past Medical History - Past Health History Medical/Surgical History: Denies Medical/Surgical History HEENT History: Reports: None Cardiovascular History: Reports: Hypertension, None Respiratory History: Reports: None Gastrointestinal History: Reports: GERD, GI Bleed Genitourinary History: Reports: None Musculoskeletal History: Reports: None Neurological History: Reports: None Psychiatric History: Reports: Addiction Endocrine/Metabolic History: Reports: None Hematologic History: Reports: None Immunologic History: Reports: None Oncologic (Cancer) History: Reports: None Dermatologic History: Reports: None - Infectious Disease History Infectious Disease History: Reports: None - Past Surgical History Head Surgeries/Procedures: Reports: None Cardiovascular Surgical History: Reports: None Respiratory Surgical History: Reports: None GI Surgical History: Reports: Colonoscopy, EGD Male Surgical History: Reports: None Musculoskeletal Surgical History: Reports: None Social & Family History - Family History Family Medical History: Noncontributory - Tobacco Use Smoking Status *Q: Current Every Day Smoker Years of Tobacco use: 30 Packs/Tins Daily: 1 Used Tobacco, but Quit: No Second Hand Smoke Exposure: No - Caffeine Use Caffeine Use: Reports: Coffee - Alcohol Use Days Per Week of Alcohol Use: 7 Number of Drinks Per Day: 10 Total Drinks Per Week: 70 - Recreational Drug Use Recreational Drug Use: No - Living Situation & Occupation Living situation: Reports: with Family, Other Occupation: Unemployed ED ROS GENERAL - Review of Systems Review Of Systems: ROS reveals no pertinent complaints other than HPI. ED EXAM, GENERAL - Physical Exam Exam: See Below (See dictation) Course - Vital Signs Last Recorded V/S: Last Vital Signs Temp 36.1 C 08/18/17 21:39 Pulse 64 08/18/17 21:39 Resp 20 08/18/17 21:39 BP 105/63 08/18/17 21:39 Pulse Ox 98 08/18/17 21:39 - Orders/Labs/Meds Orders: Active Orders 24 hr Category Date Time Status Abdomen Pelvis w Cont [CT] Stat Exams 08/18/17 22:48 Taken Sodium Chloride 0.9% [Saline Flush] Med 08/18/17 22:48 Active 10 ml FLUSH ASDIRECTED PRN Sodium Chloride 0.9% [Saline Flush] Med 08/18/17 22:48 Active 2.5 ml FLUSH ASDIRECTED PRN Saline Lock Insert [OM.PC] Stat Oth 08/18/17 22:48 Ordered Medication Orders Sodium Chloride (Saline Flush) 10 ml FLUSH ASDIRECTED PRN PRN Reason: Keep Vein Open Last Admin: 08/18/17 23:15 Dose: 10 ml Sodium Chloride (Saline Flush) 2.5 ml FLUSH ASDIRECTED PRN PRN Reason: Keep Vein Open Last Admin: 08/18/17 23:15 Dose: 2.5 ml Labs: Laboratory Tests 08/18/17 08/18/17 Range/Units 22:09 22:09 WBC 6.29 (4.0-11.0) K/uL RBC 4.18 L (4.50-5.90) M/uL Hgb 14.5 (13.0-17.0) g/dL Hct 40.5 (38.0-50.0) % MCV 96.9 (80.0-98.0) fL MCH 34.7 H (27.0-32.0) pg MCHC 35.8 (31.0-37.0) g/dL RDW Std Deviation 50.9 (28.0-62.0) fl RDW Coeff of Satish 15 (11.0-15.0) % Plt Count 48 L (150-400) K/uL MPV 10.60 (7.40-12.00) fL Neut % (Auto) 58.7 (48.0-80.0) % Lymph % (Auto) 28.9 (16.0-40.0) % [place] % (Auto) 11.9 (0.0-15.0) % Eos % (Auto) 0.3 (0.0-7.0) % Baso % (Auto) 0.2 (0.0-1.5) % Neut # (Auto) 3.7 (1.4-5.7) K/uL Lymph # (Auto) 1.8 (0.6-2.4) K/uL [place] # (Auto) 0.8 (0.0-0.8) K/uL Eos # (Auto) 0.0 (0.0-0.7) K/uL Baso # (Auto) 0.0 (0.0-0.1) K/uL Nucleated RBC % 0.0 /100WBC Nucleated RBCs # 0 K/uL Sodium 123 L (136-146) mmol/L Potassium 4.3 (3.5-5.1) mmol/L Chloride 94 L (98-110) mmol/L Carbon Dioxide 13 L (21-31) mmol/L BUN 10 (6.0-23.0) mg/dL Creatinine 1.2 (0.6-1.5) mg/dL Est Cr Clr Drug Dosing 76.69 mL/min Estimated GFR (MDRD) > 60.0 ml/min Glucose 212 H (60-110) mg/dL Calcium 9.3 (8.8-10.8) mg/dL Total Bilirubin 4.2 H (0.1-1.5) mg/dL AST 81 H (5-40) IU/L ALT 49 (8-54) IU/L Alkaline Phosphatase 129 (40-150) Total Protein 8.2 H (6.0-8.0) g/dL Albumin 4.0 (3.5-5.0) g/dL Globulin 4.2 H (2.0-3.5) g/dL Albumin/Globulin Ratio 1.0 L (1.3-2.8) Amylase 78 (10-90) U/L Lipase 124 H (7-80) U/L Meds: Medications Generic Name Dose Route Start Last Admin Trade Name Freq PRN Reason Stop Dose Admin Sodium Chloride 10 ml 08/18/17 22:48 08/18/17 23:15 Saline Flush FLUSH 10 ml ASDIRECTED PRN Administration Keep Vein Open Sodium Chloride 2.5 ml 08/18/17 22:48 08/18/17 23:15 Saline Flush FLUSH 2.5 ml ASDIRECTED PRN Administration Keep Vein Open Discontinued Medications Generic Name Dose Route Start Last Admin Trade Name Freq PRN Reason Stop Dose Admin Al Hydroxide/Mg Hydroxide 15 0 ml 08/18/17 21:49 08/18/17 23:18 ml/ Metoclopramide HCl 5 mg/ PO 08/18/17 21:50 25 each Lidocaine HCl 5 ml ONETIME ONE Administration Iopamidol 100 ml 08/19/17 00:18 08/19/17 00:19 Isovue Multipack-370 (76%) IVPUSH 08/19/17 00:19 100 ml ONETIME STA Administration Pantoprazole Sodium 40 mg 08/18/17 22:48 08/18/17 23:16 Protonix Iv IVPUSH 08/18/17 22:49 40 mg .BOLUS ONE Administration Departure - Departure Time of Disposition: 01:27 Disposition: Home, Self-Care 01 Condition: Good Clinical Impression: Alcohol abuse Abdominal pain Qualifiers: Abdominal location: upper abdomen, unspecified Qualified Code(s): R10.10 - Upper abdominal pain, unspecified - Discharge Information Referrals: PCP,None [Primary Care Provider] - Forms: ED Department Discharge Additional Instructions: The following information is given to patients seen in the emergency department who are being discharged to home. This information is to outline your options for follow-up care. We provide all patients seen in our emergency department with a follow-up referral. The need for follow-up, as well as the timing and circumstances, are variable depending upon the specifics of your emergency department visit. If you don't have a primary care physician on staff, we will provide you with a referral. We always advise you to contact your personal physician following an emergency department visit to inform them of the circumstance of the visit and for follow-up with them and/or the need for any referrals to a consulting specialist. The emergency department will also refer you to a specialist when appropriate. This referral assures that you have the opportunity for followup care with a specialist. All of these measure are taken in an effort to provide you with optimal care, which includes your followup. Under all circumstances we always encourage you to contact your private physician who remains a resource for coordinating your care. When calling for followup care, please make the office aware that this follow-up is from your recent emergency room visit. If for any reason you are refused follow-up, please contact the [facility] emergency department at and ask to speak to the emergency department charge nurse. [facility] Primary care- Internal Medicine and Family [address] [address] Please call and follow-up with one of our clinic providers or your provider at [facility] for further evaluation and care of your abdominal complaints as well as your alcohol use/abuse . When you go to the clinic specifically asked for them to repeat your platelet count and liver function tests as these are likely abnormal due to drinking but should be reevaluated. Please stop and refrain from using alcohol and caffeinated products. Push hydration. Return to ER as needed and as discussed. - My Orders Last 24 Hours: My Active Orders 08/18/17 22:48 Abdomen Pelvis w Cont [CT] Stat Sodium Chloride 0.9% [Saline Flush] 10 ml FLUSH ASDIRECTED PRN Sodium Chloride 0.9% [Saline Flush] 2.5 ml FLUSH ASDIRECTED PRN Saline Lock Insert [OM.PC] Stat - Assessment/Plan Last 24 Hours: My Active Orders 08/18/17 22:48 Abdomen Pelvis w Cont [CT] Stat Sodium Chloride 0.9% [Saline Flush] 10 ml FLUSH ASDIRECTED PRN Sodium Chloride 0.9% [Saline Flush] 2.5 ml FLUSH ASDIRECTED PRN Saline Lock Insert [OM.PC] Stat
[2017-08-18 22:39] LABS: CHLORIDE,CL 94 mmol/L (98-110); SODIUM,NA 123 mmol/L (136-146)
[2017-08-18] MEDS ORDERED: Sodium Chloride 0.9% 2.5 ML Syringe FLUSH PRN (22:48)
[2017-08-18] MEDS ORDERED: Sodium Chloride 0.9% 10 ML Syringe FLUSH PRN (22:48)
[2017-08-18] MEDS ORDERED: Pantoprazole 40 MG Vial IVPUSH ONE (22:48)
[2017-08-19] MEDS ORDERED: Iopamidol 755 MG/ML 500 ML Multipack Bottle IVPUSH STA (00:18)
[2017-08-19 01:53] VITALS: BP 110/65
--- NOTE | 2017-08-19 16:33 | CT ---
EXAM DATE: 08/18/17 PATIENT'S AGE: 52 Patient: HAIDER LOPEZ Facility: [place], [place] Site . Site : 1965 Study: CT Abdomen/Pelvis [id number]/18/2017 12:58:44 AM Ordering Physician: VIVEK Final Report: INDICATION: SEVERE ABD PAIN X 3 DAYS TECHNIQUE: CT abdomen and pelvis acquired with IV contrast. COMPARISON: July 23, 2016 FINDINGS: Lower chest: Unremarkable. Liver: Heterogeneous liver with nodular contour liver consistent with cirrhosis. Spleen: Unremarkable. Pancreas: Unremarkable. Gallbladder and bile ducts: Unremarkable. Kidneys: Stable 1.2 cm renal cyst within the inferior pole of the left kidney. Adrenal glands: Unremarkable. GI tract: Small hiatal hernia. Colonic diverticulosis with no evidence acute diverticulitis Appendix is normal. Vascular structures: Atherosclerotic disease. No sign of aneurysm. Lymph nodes: Unremarkable. Miscellaneous: Unremarkable. No free air or significant free fluid. Pelvic Organs: Unremarkable. Bones: Degenerative changes. IMPRESSION: No acute abnormality of the abdomen and pelvis. Dictated by Malvin Pearson MD @ 08/19/2017 1:09:43 AM Dictated by: Malvin Pearson MD @ 08/19/2017 01:09:54 (Electronic Signature) Report Signed by Proxy. [facility]
== END 2017-08-19 01:54 | disposition home or self-care (01) ==
LOC: MW.ED 21:31
DX: R10.10 Upper abdominal pain, unspecified (principal); F10.10 Alcohol abuse, uncomplicated; D69.6 Thrombocytopenia, unspecified; E80.6 Other disorders of bilirubin metabolism; I10 Essential (primary) hypertension; K21.9 Gastro-esophageal reflux disease without esophagitis; F17.210 Nicotine dependence, cigarettes, uncomplicated; Z79.899 Other long term (current) drug therapy
CPT/HCPCS: 36415; 74177; 80053; 82150; 83690; 85025; 96374; 99284; A9270; C9113; Q9967; 99283

== ENCOUNTER 2017-09-11 11:37 | Emergency (ER) | payer MEDICAID ==
[2017-09-11] MEDS ORDERED: Sodium Chloride 0.9% 2.5 ML Syringe FLUSH PRN (11:39)
[2017-09-11] MEDS ORDERED: Sodium Chloride 0.9% 1,000 ML IV ONE ×2 (11:39→15:24)
[2017-09-11] MEDS ORDERED: Sodium Chloride 0.9% 10 ML Syringe FLUSH PRN (11:39)
[2017-09-11] MEDS ORDERED: Pantoprazole 40 MG Vial ONE (11:44)
[2017-09-11] MEDS ORDERED: Pantoprazole 80 MG in Sodium Chloride 0.9% 100 ML IV SCH ×2 (11:45→12:00)
[2017-09-11] MEDS ORDERED: Pantoprazole 40 MG Vial IVPUSH ONE (11:46)
[2017-09-11] MEDS ORDERED: Ondansetron 4 MG/2 ML SDV IVPUSH ONE ×2 (11:48→13:47)
[2017-09-11] MEDS ORDERED: Thiamine 100 MG in Sodium Chloride 0.9% 100 ML IV ONE (11:50)
--- NOTE | 2017-09-11 11:50 | EDM.PDOC ---
ED HPI GENERAL MEDICAL PROBLEM - General Chief Complaint: Gastrointestinal Problem Stated Complaint: BLEEDING Time Seen by Provider: 09/11/17 11:49 Source of Information: Reports: Patient, EMS Notes Reviewed History Limitations: Reports: No Limitations - History of Present Illness INITIAL COMMENTS - FREE TEXT/NARRATIVE: HISTORY AND PHYSICAL: []52-year-old presents per EMS with bleeding His complaints were weakness and dizziness has been drinking today. History of Present Illness: []Patient has history for 5 days of rectal bleeding The esophageal varices that he has has not been bleeding He has been vomiting but it has been bile colored Long history of alcohol abuse last was in rehabilitation [address] [facility] he had a EGD 3 months ago Denies any history of hepatitis Denies any difficulty chewing or swallowing no chest pain Denies pain to his legs ,no edema Patient has history of pneumonia, septicemia, multiple occasions GI bleed Review of Systems: As per history of present illness and below otherwise all systems reviewed and negative. Past medical history: As per history of present illness and as reviewed below otherwise noncontributory. Surgical history: As per history of present illness and as reviewed below otherwise noncontributory. Social history: No reported history of drug or alcohol abuse. Family history: As per history of present illness and as reviewed below otherwise noncontributory. Physical exam: Alert and oriented male .strong odor of alcohol. Answering questions appropriately in full sentences without any shortness of breath HEENT: Atraumatic, normocehpalic, pupils reactive slow, negative for conjunctival pallor or scleral icterus, mucous membranes moist, throat clear, neck supple, nontender, trachea midline. Lungs: Clear to auscultation, breath sounds equal bilaterally, chest non tender. Shallow breath sounds somewhat diminished. Heart: S1S2, regular, negative for clicks, rubs, or JVD. Abdomen: Soft,mildly distended, exquisite tenderness with palpation to the left upper quadrant. Less to the generalized abdomen. Negative for masses or hepatossplenmegaly. Negative for costovertebral tenderness. Pelvis: Stable nontender. Genitourinary: Deferred. Rectal:Hemoccult-positive diarrhea type stool Extremities: Atraumatic, negative for cords or calf pain. Neurovascular unremarkable. Neuro: Awake, alert, oriented. Cranial nerves II through XII unremarkable. Cerebellum unremarkable. Motor and sensory unremarkable throughout. Exam nonfocal. Have discussed this case with Dr. Gottlieb who will come to the emergency room and looked this patient. After examination Dr. Gottlieb has suggested he be transferred to [facility] in [place] we do not have any platelets. This gentlemen's platelet count is 29 Finally his last scope for GI bleed was in [facility] in [place] and for continuation of care would like the curb machine operator to follow-up with him there I discussed this case then per telephone with ER physician Dr. Carter who has accepted this patient for transfer and admitting to the emergency department. Forms were completed for transfer patient Ambulance to the emergency room at [facility] in [facility] patient and his sister are aware of the transfer and are agreeable to this course of action. Diagnostics: [CBC CMP amylase lipase magnesium EKG chest x-ray] Therapeutics: [IVs normal saline Zofran Thiamine] Impression: [Active hepatitis Cirrhosis Cholelithiasis ] Plan: [Transfer patient per ground ambulance to [facility] emergency department] Definitive disposition and diagnosis as appropriate pending reevaluation and review of above. - Related Data Allergies Allergy/AdvReac Type Severity Reaction Status Date / Time No Known Allergies Allergy Verified 09/11/17 12:11 Home Meds: Home Meds Ferrous Sulfate 325 mg PO BID 07/18/17 [History] Furosemide [Furosemide] 1 tab PO BID 07/18/17 [History] Nadolol [Nadolol] 1 tab PO BID 07/18/17 [History] Pantoprazole [ProTONIX] 40 mg PO DAILY 07/18/17 [History] Potassium Chloride 1 tab PO DAILY 07/18/17 [History] Spironolactone [Spironolactone] 100 mg PO BID 07/18/17 [History] Past Medical History - Past Health History Medical/Surgical History: Denies Medical/Surgical History HEENT History: Reports: None Cardiovascular History: Reports: Hypertension, None Respiratory History: Reports: None Gastrointestinal History: Reports: GERD, GI Bleed Genitourinary History: Reports: None Musculoskeletal History: Reports: None Neurological History: Reports: None Psychiatric History: Reports: Addiction Endocrine/Metabolic History: Reports: None Hematologic History: Reports: None Immunologic History: Reports: None Oncologic (Cancer) History: Reports: None Dermatologic History: Reports: None - Infectious Disease History Infectious Disease History: Reports: None - Past Surgical History Head Surgeries/Procedures: Reports: None Cardiovascular Surgical History: Reports: None Respiratory Surgical History: Reports: None GI Surgical History: Reports: Colonoscopy, EGD Male Surgical History: Reports: None Musculoskeletal Surgical History: Reports: None Social & Family History - Family History Family Medical History: Noncontributory - Tobacco Use Smoking Status *Q: Current Every Day Smoker Years of Tobacco use: 30 Packs/Tins Daily: 1 Used Tobacco, but Quit: No Second Hand Smoke Exposure: No - Caffeine Use Caffeine Use: Reports: Coffee - Alcohol Use Days Per Week of Alcohol Use: 7 Number of Drinks Per Day: 10 Total Drinks Per Week: 70 - Recreational Drug Use Recreational Drug Use: No - Living Situation & Occupation Living situation: Reports: with Family, Other Occupation: Unemployed ED ROS GENERAL - Review of Systems Review Of Systems: ROS reveals no pertinent complaints other than HPI. ED EXAM, GI/ABD - Physical Exam Exam: See Below (See dictation) Course - Vital Signs Last Recorded V/S: Last Vital Signs Temp 37.6 C 09/11/17 13:44 Pulse 110 H 09/11/17 13:44 Resp 16 09/11/17 13:44 BP 117/75 09/11/17 13:44 Pulse Ox 95 09/11/17 13:44 - Orders/Labs/Meds Orders: Active Orders 24 hr Category Date Time Status EKG Documentation Completion [RC] STAT Care 09/11/17 11:39 Active Notify Provider Consults [RC] ASDIRECTED Care 09/11/17 13:56 Active Oxygen Therapy, ED [RC] ASDIRECTED Care 09/11/17 11:39 Active Consult to Physician [CONS] Stat Cons 09/11/17 13:56 Active UA W/O MICROSCOPIC [URIN] Stat Lab 09/11/17 11:40 Uncollected Pantoprazole [ProTONIX IV] 80 mg Med 09/11/17 12:00 Active Sodium Chloride 0.9% [Normal Saline] 100 ml IV Q10H Sodium Chloride 0.9% [Saline Flush] Med 09/11/17 11:39 Active 10 ml FLUSH ASDIRECTED PRN Sodium Chloride 0.9% [Saline Flush] Med 09/11/17 11:39 Active 2.5 ml FLUSH ASDIRECTED PRN Saline Lock Insert [OM.PC] Stat Oth 09/11/17 11:39 Ordered Medication Orders Pantoprazole Sodium 80 mg/ (Sodium Chloride) 100 mls @ 10 mls/hr IV Q10H ELINA Last Admin: 09/11/17 12:02 Dose: 10 mls/hr Sodium Chloride (Saline Flush) 10 ml FLUSH ASDIRECTED PRN PRN Reason: Keep Vein Open Sodium Chloride (Saline Flush) 2.5 ml FLUSH ASDIRECTED PRN PRN Reason: Keep Vein Open Labs: Laboratory Tests 09/11/17 09/11/17 09/11/17 Range/Units 11:35 11:35 11:35 WBC 5.92 (4.0-11.0) K/uL RBC 3.75 L (4.50-5.90) M/uL Hgb 12.4 L (13.0-17.0) g/dL Hct 37.2 L (38.0-50.0) % MCV 99.2 H (80.0-98.0) fL MCH 33.1 H (27.0-32.0) pg MCHC 33.3 (31.0-37.0) g/dL RDW Std Deviation 50.4 (28.0-62.0) fl RDW Coeff of Satish 14 (11.0-15.0) % Plt Count 29 L (150-400) K/uL MPV 11.70 (7.40-12.00) fL Neut % (Auto) 57.2 (48.0-80.0) % Lymph % (Auto) 28.7 (16.0-40.0) % [place] % (Auto) 12.7 (0.0-15.0) % Eos % (Auto) 0.7 (0.0-7.0) % Baso % (Auto) 0.7 (0.0-1.5) % Neut # (Auto) 3.4 (1.4-5.7) K/uL Lymph # (Auto) 1.7 (0.6-2.4) K/uL [place] # (Auto) 0.8 (0.0-0.8) K/uL Eos # (Auto) 0.0 (0.0-0.7) K/uL Baso # (Auto) 0.0 (0.0-0.1) K/uL Nucleated RBC % 0.0 /100WBC Nucleated RBCs # 0 K/uL INR 1.37 H (0.86-1.11) Sodium 139 (136-146) mmol/L Potassium 4.2 (3.5-5.1) mmol/L Chloride 104 (98-110) mmol/L Carbon Dioxide 22 (21-31) mmol/L BUN 18 (6.0-23.0) mg/dL Creatinine 0.6 (0.6-1.5) mg/dL Est Cr Clr Drug Dosing 148.70 mL/min Estimated GFR (MDRD) > 60.0 ml/min Glucose 108 (60-110) mg/dL Calcium 8.1 L (8.8-10.8) mg/dL Magnesium (1.5-2.3) mEq/L Total Bilirubin 2.8 H (0.1-1.5) mg/dL AST 106 H (5-40) IU/L ALT 55 H (8-54) IU/L Alkaline Phosphatase 111 (40-150) Troponin I (0.0-0.29) NG/ML Total Protein 7.0 (6.0-8.0) g/dL Albumin 3.2 L (3.5-5.0) g/dL Globulin 3.8 H (2.0-3.5) g/dL Albumin/Globulin Ratio 0.8 L (1.3-2.8) Amylase 41 (10-90) U/L Lipase 64 (7-80) U/L Ethyl Alcohol 231.1 mg/dL Blood Type Antibody Screen 09/11/17 09/11/17 09/11/17 Range/Units 11:35 11:35 12:02 WBC (4.0-11.0) K/uL RBC (4.50-5.90) M/uL Hgb (13.0-17.0) g/dL Hct (38.0-50.0) % MCV (80.0-98.0) fL MCH (27.0-32.0) pg MCHC (31.0-37.0) g/dL RDW Std Deviation (28.0-62.0) fl RDW Coeff of Satish (11.0-15.0) % Plt Count (150-400) K/uL MPV (7.40-12.00) fL Neut % (Auto) (48.0-80.0) % Lymph % (Auto) (16.0-40.0) % [place] % (Auto) (0.0-15.0) % Eos % (Auto) (0.0-7.0) % Baso % (Auto) (0.0-1.5) % Neut # (Auto) (1.4-5.7) K/uL Lymph # (Auto) (0.6-2.4) K/uL [place] # (Auto) (0.0-0.8) K/uL Eos # (Auto) (0.0-0.7) K/uL Baso # (Auto) (0.0-0.1) K/uL Nucleated RBC % /100WBC Nucleated RBCs # K/uL INR (0.86-1.11) Sodium (136-146) mmol/L Potassium (3.5-5.1) mmol/L Chloride (98-110) mmol/L Carbon Dioxide (21-31) mmol/L BUN (6.0-23.0) mg/dL Creatinine (0.6-1.5) mg/dL Est Cr Clr Drug Dosing mL/min Estimated GFR (MDRD) ml/min Glucose (60-110) mg/dL Calcium (8.8-10.8) mg/dL Magnesium 1.7 (1.5-2.3) mEq/L Total Bilirubin (0.1-1.5) mg/dL AST (5-40) IU/L ALT (8-54) IU/L Alkaline Phosphatase (40-150) Troponin I < 0.10 (0.0-0.29) NG/ML Total Protein (6.0-8.0) g/dL Albumin (3.5-5.0) g/dL Globulin (2.0-3.5) g/dL Albumin/Globulin Ratio (1.3-2.8) Amylase (10-90) U/L Lipase (7-80) U/L Ethyl Alcohol mg/dL Blood Type O POSITIVE Antibody Screen NEGATIVE Meds: Medications Generic Name Dose Route Start Last Admin Trade Name Freq PRN Reason Stop Dose Admin Pantoprazole Sodium 80 mg/ 100 mls @ 10 mls/hr 09/11/17 12:00 09/11/17 12:02 Sodium Chloride IV 10 mls/hr Q10H ELINA Administration Sodium Chloride 10 ml 09/11/17 11:39 Saline Flush FLUSH ASDIRECTED PRN Keep Vein Open Sodium Chloride 2.5 ml 09/11/17 11:39 Saline Flush FLUSH ASDIRECTED PRN Keep Vein Open Discontinued Medications Generic Name Dose Route Start Last Admin Trade Name Freq PRN Reason Stop Dose Admin Acetaminophen 650 mg 09/11/17 12:13 Tylenol PO 09/11/17 12:14 NOW ONE Pantoprazole Sodium 80 mg/ 100 mls @ 10 mls/hr 09/11/17 11:45 Sodium Chloride IV .Continuous ELINA Sodium Chloride 1,000 mls @ 999 mls/hr 09/11/17 11:39 09/11/17 11:52 Normal Saline IV 09/11/17 12:39 999 mls/hr STAT ONE Administration Thiamine HCl 100 mg/ Sodium 101 mls @ 202 mls/hr 09/11/17 11:50 09/11/17 13: 08 Chloride IV 09/11/17 11:51 202 mls/hr ONETIME ONE Administration Morphine Sulfate 2 mg 09/11/17 13:23 09/11/17 13:31 Morphine IV 09/11/17 13:24 2 mg ONETIME ONE Administration Ondansetron HCl 4 mg 09/11/17 11:48 09/11/17 12:03 Zofran IVPUSH 09/11/17 11:49 4 mg ONETIME ONE Administration Ondansetron HCl 4 mg 09/11/17 13:47 09/11/17 13:50 Zofran IVPUSH 09/11/17 13:48 4 mg ONETIME ONE Administration Pantoprazole Sodium 80 mg 09/11/17 11:46 09/11/17 12:02 Protonix Iv IVPUSH 09/11/17 11:47 80 mg .BOLUS ONE Administration Pantoprazole Sodium Confirm 09/11/17 11:44 09/11/17 12:03 Protonix Iv Administered 09/11/17 11:45 Not Given Dose 80 mg .ROUTE .STK-MED ONE Departure - Departure Time of Disposition: 14:42 Disposition: DC/Tfer to Acute Hospital 02 Condition: Good Clinical Impression: Alcohol abuse GI (gastrointestinal bleed) Qualifiers: GI bleed type/associated pathology: melena Qualified Code(s): K92.1 - Melena - Discharge Information Referrals: PCP,Unknown [Primary Care Provider] - Forms: ED Department Discharge - My Orders Last 24 Hours: My Active Orders 09/11/17 11:39 EKG Documentation Completion [RC] STAT Oxygen Therapy, ED [RC] ASDIRECTED Sodium Chloride 0.9% [Saline Flush] 10 ml FLUSH ASDIRECTED PRN Sodium Chloride 0.9% [Saline Flush] 2.5 ml FLUSH ASDIRECTED PRN Saline Lock Insert [OM.PC] Stat 09/11/17 11:40 UA W/O MICROSCOPIC [URIN] Stat 09/11/17 12:00 Pantoprazole [ProTONIX IV] 80 mg Sodium Chloride 0.9% [Normal Saline] 100 ml IV Q10H - Assessment/Plan Last 24 Hours: My Active Orders 09/11/17 11:39 EKG Documentation Completion [RC] STAT Oxygen Therapy, ED [RC] ASDIRECTED Sodium Chloride 0.9% [Saline Flush] 10 ml FLUSH ASDIRECTED PRN Sodium Chloride 0.9% [Saline Flush] 2.5 ml FLUSH ASDIRECTED PRN Saline Lock Insert [OM.PC] Stat 09/11/17 11:40 UA W/O MICROSCOPIC [URIN] Stat 09/11/17 12:00 Pantoprazole [ProTONIX IV] 80 mg Sodium Chloride 0.9% [Normal Saline] 100 ml IV Q10H
[2017-09-11] MEDS ORDERED: Acetaminophen 325 MG Tab PO ONE (12:13)
[2017-09-11 12:24] LABS: CHLORIDE,CL 104 mmol/L (98-110); SODIUM,NA 139 mmol/L (136-146)
--- NOTE | 2017-09-11 13:00 | CR ---
EXAMINATION: Portable chest radiograph. HISTORY: Cough. Comparison: 07/18/2017. FINDINGS: The trachea is midline. The cardiomediastinal silhouette is within normal limits. No pulmonary infilt rates, effusions or pneumothorax. There is stable interstitial prominence and scarring within the lef t lung base. Osseous structures appear unremarkable. IMPRESSION: No acute cardiopulmonary process.
[2017-09-11] MEDS ORDERED: Morphine 10 MG/ML Syringe IV ONE (13:23)
--- NOTE | 2017-09-11 13:32 | CT ---
CT of the abdomen and pelvis with contrast. HISTORY: Pain TECHNIQUE: Axial CT images were obtained of the abdomen and pelvis following administration of 100 mL of Isovue-370 without complication. Coronal and sagittal reconstructions obtained. FINDINGS: There is atelectasis within the lung bases. There are 2 small areas of loculated pleural fluid along the left hemidiaphragm. The liver is notably heterogeneous in echotexture and enhancement. The contour is nodular. There is a small amount of perihepatic fluid and stranding noted. Cholelithiasis without definite evidence of c holecystitis. The spleen and adrenal glands appear normal. The pancreas appears normal. There is a cyst within the midpole of the left kidney. The kidneys enhance and function symmetrically without evidence of obstructive uropathy. The large and small bowel are normal in caliber without evidence of obstruction. No focal pericolonic inflammation or stranding. There are a few scattered diverticula. The appendix is normal. Trace free pelvic fluid. Urinary bladder is normal. The prostate is moderately prominent. Bulky pelvic lymphade nopathy. Visualized osseous structures appear normal. IMPRESSION: 1. The liver is notably heterogeneous and nodular in appearance and enhancement. This likely represen ts active alcohol hepatitis versus steatohepatitis. The nodular contour suggests a moderate degree of underlying cirrhosis. 2. Few scattered diverticula without evidence of focal diverticulitis. 3. Cholelithiasis without evidence of cholecystitis.
[2017-09-11 13:44] VITALS: BP 117/75
--- NOTE | 2017-09-11 14:12 | PCM.CONS ---
H&P History of Present Illness - History of Present Illness Initial Comments - Free Text/Narative: 52 yo male with pmh of alcohol abuse, liver cirrhosis, thrombocytopenia, and esophageal varices who presents to the ED with rectal bleeding. His sister went to his house for wellness check as it was reported to her that he had bleed on his couch. The patient reports dark stool for past day. He reports abdominal pain and dry heaving. He denies any hematemesis. - Related Data Allergies/Adverse Reactions: Allergies Allergy/AdvReac Type Severity Reaction Status Date / Time No Known Allergies Allergy Verified 09/11/17 12:11 Home Medications: Home Meds Ferrous Sulfate 325 mg PO BID 07/18/17 [History] Furosemide [Furosemide] 1 tab PO BID 07/18/17 [History] Nadolol [Nadolol] 1 tab PO BID 07/18/17 [History] Pantoprazole [ProTONIX] 40 mg PO DAILY 07/18/17 [History] Potassium Chloride 1 tab PO DAILY 07/18/17 [History] Spironolactone [Spironolactone] 100 mg PO BID 07/18/17 [History] Past Medical History - Past Health History Medical/Surgical History: Denies Medical/Surgical History HEENT History: Reports: None Cardiovascular History: Reports: Hypertension, None Respiratory History: Reports: None Gastrointestinal History: Reports: GERD, GI Bleed Genitourinary History: Reports: None Musculoskeletal History: Reports: None Neurological History: Reports: None Psychiatric History: Reports: Addiction Endocrine/Metabolic History: Reports: None Hematologic History: Reports: None Immunologic History: Reports: None Oncologic (Cancer) History: Reports: None Dermatologic History: Reports: None - Infectious Disease History Infectious Disease History: Reports: None - Past Surgical History Head Surgeries/Procedures: Reports: None Cardiovascular Surgical History: Reports: None Respiratory Surgical History: Reports: None GI Surgical History: Reports: Colonoscopy, EGD Male Surgical History: Reports: None Musculoskeletal Surgical History: Reports: None Social & Family History - Family History Family Medical History: Noncontributory - Tobacco Use Smoking Status *Q: Current Every Day Smoker Years of Tobacco use: 30 Packs/Tins Daily: 1 Used Tobacco, but Quit: No Second Hand Smoke Exposure: No - Caffeine Use Caffeine Use: Reports: Coffee - Alcohol Use Days Per Week of Alcohol Use: 7 Number of Drinks Per Day: 10 Total Drinks Per Week: 70 - Recreational Drug Use Recreational Drug Use: No - Living Situation & Occupation Living situation: Reports: with Family, Other Occupation: Unemployed H&P Review of Systems - Review of Systems: Review Of Systems: ROS reveals no pertinent complaints other than HPI. Exam - Exam Exam: See Below - Vital Signs Vital Signs: Last Vital Signs Temp 37.6 C 09/11/17 13:44 Pulse 110 H 09/11/17 13:44 Resp 16 09/11/17 13:44 BP 117/75 09/11/17 13:44 Pulse Ox 95 09/11/17 13:44 Weight: 95.2 kg - Exam General: Alert, Oriented HEENT: Mucosa Moist & [place] Neck: Supple Lungs: Clear to Auscultation, Normal Respiratory Effort Cardiovascular: Regular Rate, Regular Rhythm GI/Abdominal Exam: Distended, Tender (to epigastrum). No: Guarding, Rigid, Rebound Extremities: Non-Tender Skin: Warm, Dry, Intact Neurological: No: Focal Deficit - Patient Data Lab Results Last 24 hrs: Laboratory Results - last 24 hr 09/11/17 09/11/17 09/11/17 Range/Units 11:35 11:35 11:35 WBC 5.92 (4.0-11.0) K/uL RBC 3.75 L (4.50-5.90) M/uL Hgb 12.4 L (13.0-17.0) g/dL Hct 37.2 L (38.0-50.0) % MCV 99.2 H (80.0-98.0) fL MCH 33.1 H (27.0-32.0) pg MCHC 33.3 (31.0-37.0) g/dL RDW Std Deviation 50.4 (28.0-62.0) fl RDW Coeff of Satish 14 (11.0-15.0) % Plt Count 29 L (150-400) K/uL MPV 11.70 (7.40-12.00) fL Neut % (Auto) 57.2 (48.0-80.0) % Lymph % (Auto) 28.7 (16.0-40.0) % [place] % (Auto) 12.7 (0.0-15.0) % Eos % (Auto) 0.7 (0.0-7.0) % Baso % (Auto) 0.7 (0.0-1.5) % Neut # (Auto) 3.4 (1.4-5.7) K/uL Lymph # (Auto) 1.7 (0.6-2.4) K/uL [place] # (Auto) 0.8 (0.0-0.8) K/uL Eos # (Auto) 0.0 (0.0-0.7) K/uL Baso # (Auto) 0.0 (0.0-0.1) K/uL Nucleated RBC % 0.0 /100WBC Nucleated RBCs # 0 K/uL INR 1.37 H (0.86-1.11) Sodium 139 (136-146) mmol/L Potassium 4.2 (3.5-5.1) mmol/L Chloride 104 (98-110) mmol/L Carbon Dioxide 22 (21-31) mmol/L BUN 18 (6.0-23.0) mg/dL Creatinine 0.6 (0.6-1.5) mg/dL Est Cr Clr Drug Dosing 148.70 mL/min Estimated GFR (MDRD) > 60.0 ml/min Glucose 108 (60-110) mg/dL Calcium 8.1 L (8.8-10.8) mg/dL Magnesium (1.5-2.3) mEq/L Total Bilirubin 2.8 H (0.1-1.5) mg/dL AST 106 H (5-40) IU/L ALT 55 H (8-54) IU/L Alkaline Phosphatase 111 (40-150) Troponin I (0.0-0.29) NG/ML Total Protein 7.0 (6.0-8.0) g/dL Albumin 3.2 L (3.5-5.0) g/dL Globulin 3.8 H (2.0-3.5) g/dL Albumin/Globulin Ratio 0.8 L (1.3-2.8) Amylase 41 (10-90) U/L Lipase 64 (7-80) U/L Ethyl Alcohol 231.1 mg/dL Blood Type Antibody Screen 09/11/17 09/11/17 09/11/17 Range/Units 11:35 11:35 12:02 WBC (4.0-11.0) K/uL RBC (4.50-5.90) M/uL Hgb (13.0-17.0) g/dL Hct (38.0-50.0) % MCV (80.0-98.0) fL MCH (27.0-32.0) pg MCHC (31.0-37.0) g/dL RDW Std Deviation (28.0-62.0) fl RDW Coeff of Satish (11.0-15.0) % Plt Count (150-400) K/uL MPV (7.40-12.00) fL Neut % (Auto) (48.0-80.0) % Lymph % (Auto) (16.0-40.0) % [place] % (Auto) (0.0-15.0) % Eos % (Auto) (0.0-7.0) % Baso % (Auto) (0.0-1.5) % Neut # (Auto) (1.4-5.7) K/uL Lymph # (Auto) (0.6-2.4) K/uL [place] # (Auto) (0.0-0.8) K/uL Eos # (Auto) (0.0-0.7) K/uL Baso # (Auto) (0.0-0.1) K/uL Nucleated RBC % /100WBC Nucleated RBCs # K/uL INR (0.86-1.11) Sodium (136-146) mmol/L Potassium (3.5-5.1) mmol/L Chloride (98-110) mmol/L Carbon Dioxide (21-31) mmol/L BUN (6.0-23.0) mg/dL Creatinine (0.6-1.5) mg/dL Est Cr Clr Drug Dosing mL/min Estimated GFR (MDRD) ml/min Glucose (60-110) mg/dL Calcium (8.8-10.8) mg/dL Magnesium 1.7 (1.5-2.3) mEq/L Total Bilirubin (0.1-1.5) mg/dL AST (5-40) IU/L ALT (8-54) IU/L Alkaline Phosphatase (40-150) Troponin I < 0.10 (0.0-0.29) NG/ML Total Protein (6.0-8.0) g/dL Albumin (3.5-5.0) g/dL Globulin (2.0-3.5) g/dL Albumin/Globulin Ratio (1.3-2.8) Amylase (10-90) U/L Lipase (7-80) U/L Ethyl Alcohol mg/dL Blood Type O POSITIVE Antibody Screen NEGATIVE Result Diagrams: 09/11/17 11:35 09/11/17 11:35 Consult PN Assessment/Plan Procedures: Procedures ASSAY OF AMMONIA (12/31/16) ASSAY OF AMYLASE (08/18/17) ASSAY OF CK (CPK) (12/31/16) ASSAY OF LACTIC ACID (07/23/16) ASSAY OF LIPASE (08/18/17) ASSAY OF TROPONIN QUANT (07/18/17) ASSAY THYROID STIM HORMONE (07/18/17) BLOOD CULTURE FOR BACTERIA (07/23/16) BLOOD TRANSFUSION SERVICE (12/31/16) BLOOD TYPING SEROLOGIC ABO (07/18/17) BLOOD TYPING SEROLOGIC RH(D) (07/18/17) C-REACTIVE PROTEIN (08/13/15) CHEST X-RAY 1 VIEW FRONTAL (07/18/17) COMPATIBILITY TEST ANTIGLOB (12/31/16) COMPATIBILITY TEST INCUBATE (12/31/16) COMPATIBILITY TEST SPIN (12/31/16) COMPLETE CBC W/AUTO DIFF WBC (08/18/17) COMPREHEN METABOLIC PANEL (08/18/17) CREATINE MB FRACTION (12/31/16) CRITICAL CARE FIRST HOUR (12/31/16) CT ABD & PELV W/CONTRAST (08/18/17) DRUG SCRN 1+ CLASS NONCHROMO (03/08/14) DRUG TEST PRSMV DIR OPT OBS (07/18/17) ECHO EXAM OF ABDOMEN (01/18/17) ELECTROCARDIOGRAM TRACING (07/18/17) EMERGENCY DEPT VISIT (08/18/17) EMERGENCY DEPT VISIT (07/18/17) EMERGENCY DEPT VISIT (08/27/16) EMERGENCY DEPT VISIT (07/23/16) EMERGENCY DEPT VISIT (03/26/16) EMERGENCY DEPT VISIT (01/15/16) EMERGENCY DEPT VISIT (03/08/14) EMERGENCY DEPT VISIT (03/08/14) GLUCOSE BLOOD TEST (07/23/16) HYDRATE IV INFUSION ADD-ON (08/22/16) HYDRATION IV INFUSION INIT (12/31/16) PROTHROMBIN TIME (07/18/17) RBC ANTIBODY SCREEN (07/18/17) ROUTINE VENIPUNCTURE (08/18/17) THER/DIAG CONCURRENT INF (07/23/16) THER/PROPH/DIAG INJ IV PUSH (08/18/17) THER/PROPH/DIAG INJ SC/IM (12/31/16) THER/PROPH/DIAG IV INF ADDON (07/23/16) THER/PROPH/DIAG IV INF INIT (07/18/17) THROMBOPLASTIN TIME PARTIAL (12/31/16) TX/PRO/DX INJ NEW DRUG ADDON (07/18/17) TX/PRO/DX INJ SAME DRUG TECHNICAL SYSTEMS ARCHITECT (07/23/16) URINALYSIS AUTO W/SCOPE (07/18/17) X-RAY EXAM OF ABDOMEN (07/18/17) Problem List Initiated/Reviewed/Updated: Yes Plan: 52 yo male who presents with GI bleed. Protonix drip has been started in the ED. Due to his history of esophageal varices, and thrombocytopenia I would recommend transfer to facility that has platelets as well as GI consultation.
== END 2017-09-11 15:15 ==
LOC: MW.ED 11:37
DX: K92.1 Melena (principal); K80.20 Calculus of gallbladder without cholecystitis without obstruction; F10.10 Alcohol abuse, uncomplicated; K75.9 Inflammatory liver disease, unspecified; K74.60 Unspecified cirrhosis of liver; Z79.899 Other long term (current) drug therapy; K21.9 Gastro-esophageal reflux disease without esophagitis; I10 Essential (primary) hypertension; F17.210 Nicotine dependence, cigarettes, uncomplicated
CPT/HCPCS: 36415; 71010; 74177; 80053; 82150; 83690; 83735; 84484; 85025; 85610; 86850; 86900; 86901; 93005; 96365; 96366; 96375; 99285; C9113; G0480; J2270; J2405; J3411; J7030; J7040; 99283

== ENCOUNTER 2017-09-29 19:06 | Inpatient (IN) | payer MEDICAID ==
[2017-09-29] MEDS ORDERED: Sodium Chloride 0.9% 1,000 ML IV ONE (19:19)
[2017-09-29] MEDS ORDERED: HYDROmorphone 2 MG/ML Syringe IVPUSH ONE (19:19)
[2017-09-29] MEDS ORDERED: Ondansetron 4 MG/2 ML SDV IVPUSH ONE (19:19)
[2017-09-29] MEDS ORDERED: Iopamidol 755 MG/ML 500 ML Multipack Bottle IVPUSH STA (19:27)
[2017-09-29 19:47] LABS: CHLORIDE,CL 105 mmol/L (98-110); SODIUM,NA 141 mmol/L (136-146)
[2017-09-29] MEDS: Piperacillin/Tazobactam 3.375 GM in Sodium Chloride 0.9% 50 ML IV SCH (21:52)
--- NOTE | 2017-09-29 22:12 | EDM.PDOC ---
ED HPI GENERAL MEDICAL PROBLEM - General Chief Complaint: Gastrointestinal Problem Stated Complaint: FLUIDS IN STOMACH/BLOATED Time Seen by Provider: 09/29/17 21:30 Source of Information: Reports: RN - History of Present Illness INITIAL COMMENTS - FREE TEXT/NARRATIVE: He presents tonight with worsening diffuse abdominal pain. He has great difficultry walking. He drinks alcohol daily. He admits to about 6 beers/day. - Related Data Allergies Allergy/AdvReac Type Severity Reaction Status Date / Time No Known Allergies Allergy Verified 09/29/17 19:17 Home Meds: Home Meds Ferrous Sulfate 325 mg PO BID 07/18/17 [History] Furosemide [Furosemide] 1 tab PO BID 07/18/17 [History] Nadolol [Nadolol] 1 tab PO BID 07/18/17 [History] Pantoprazole [ProTONIX] 40 mg PO DAILY 07/18/17 [History] Potassium Chloride 1 tab PO DAILY 07/18/17 [History] Spironolactone [Spironolactone] 100 mg PO BID 07/18/17 [History] Past Medical History - Past Health History Medical/Surgical History: Denies Medical/Surgical History HEENT History: Reports: None Cardiovascular History: Reports: Hypertension Respiratory History: Reports: None Gastrointestinal History: Reports: GERD, GI Bleed Genitourinary History: Reports: None Musculoskeletal History: Reports: None Neurological History: Reports: None Psychiatric History: Reports: Addiction, Anxiety Endocrine/Metabolic History: Reports: None Hematologic History: Reports: None Immunologic History: Reports: None Oncologic (Cancer) History: Reports: None Dermatologic History: Reports: None - Infectious Disease History Infectious Disease History: Reports: None - Past Surgical History Head Surgeries/Procedures: Reports: None Cardiovascular Surgical History: Reports: None Respiratory Surgical History: Reports: None GI Surgical History: Reports: Colonoscopy, EGD, Other (See Below) Other GI Surgeries/Procedures: "clamps in stomach 5x" Male Surgical History: Reports: None Musculoskeletal Surgical History: Reports: None Social & Family History - Family History Family Medical History: Noncontributory - Tobacco Use Smoking Status *Q: Current Every Day Smoker Years of Tobacco use: 40 Packs/Tins Daily: 0.5 Used Tobacco, but Quit: No Second Hand Smoke Exposure: No - Caffeine Use Caffeine Use: Reports: Coffee, Energy Drinks, Soda, Tea - Alcohol Use Days Per Week of Alcohol Use: 7 Number of Drinks Per Day: 10 Total Drinks Per Week: 70 - Recreational Drug Use Recreational Drug Use: No - Living Situation & Occupation Living situation: Reports: with Family, Other Occupation: Unemployed ED ROS GENERAL - Review of Systems Review Of Systems: See Below Constitutional: Reports: Fever, Chills Respiratory: Denies: Shortness of Breath, Cough, Sputum Cardiovascular: Denies: Chest Pain GI/Abdominal: Reports: Abdominal Pain. Denies: Black Stool, Bloody Stool, Hematemesis, Hematochezia ED EXAM, GI/ABD - Physical Exam Exam: See Below Text/Narrative:: alert pleasant lungs CTA heart RRR neurologic: ataxic unsteady gait; fine hand tremor abdomen: mild distention; mild fluid wave; soft with moderate diffuse tenderness trace pretibial edema normal speech General Appearance: Alert, No Apparent Distress Course - Vital Signs Last Recorded V/S: Last Vital Signs Temp 97.8 F 09/29/17 19:13 Pulse 83 09/29/17 21:29 Resp 20 09/29/17 21:29 BP 116/70 09/29/17 21:29 Pulse Ox 94 L 09/29/17 21:29 - Orders/Labs/Meds Orders: Active Orders 24 hr Category Date Time Status Abdomen Pelvis w Cont [CT] Stat Exams 09/29/17 19:19 Taken AMMONIA VENOUS [CHEM] Stat Lab 09/29/17 21:55 Received CULTURE BLOOD [BC] Stat Lab 09/29/17 21:55 Received CULTURE BLOOD [BC] Stat Lab 09/29/17 22:00 Received Piperacillin/Tazobactam [Piperacil-Tazobact] 3.375 gm Med 09/29/17 21:45 Active Sodium Chloride 0.9% [Normal Saline] 50 ml IV Q6H Blood Culture x2 Reflex Set [OM.PC] Stat Oth 09/29/17 21:52 Ordered Medication Orders Piperacillin Sod/Tazobactam (Sod 3.375 gm/ Sodium Chloride) 50 mls @ 100 mls/ hr IV Q6H [facility] Last Admin: 09/29/17 21:52 Dose: 100 mls/hr Labs: Laboratory Tests 09/29/17 09/29/17 09/29/17 Range/Units 19:23 19:23 19:23 WBC 3.18 L (4.0-11.0) K/uL RBC 3.62 L (4.50-5.90) M/uL Hgb 10.3 L (13.0-17.0) g/dL Hct 33.4 L (38.0-50.0) % MCV 92.3 (80.0-98.0) fL MCH 28.5 (27.0-32.0) pg MCHC 30.8 L (31.0-37.0) g/dL RDW Std Deviation 57.0 (28.0-62.0) fl RDW Coeff of Satish 17 H (11.0-15.0) % Plt Count 40 L (150-400) K/uL Neut % (Auto) 66.1 (48.0-80.0) % Lymph % (Auto) 17.6 (16.0-40.0) % Gibson % (Auto) 15.7 H (0.0-15.0) % Eos % (Auto) 0.0 (0.0-7.0) % Baso % (Auto) 0.6 (0.0-1.5) % Neut # (Auto) 2.1 (1.4-5.7) K/uL Lymph # (Auto) 0.6 (0.6-2.4) K/uL Gibson # (Auto) 0.5 (0.0-0.8) K/uL Eos # (Auto) 0.0 (0.0-0.7) K/uL Baso # (Auto) 0.0 (0.0-0.1) K/uL Nucleated RBC % 0.0 /100WBC Nucleated RBCs # 0 K/uL INR 1.18 H (0.86-1.11) Sodium 141 (136-146) mmol/L Potassium 3.7 (3.5-5.1) mmol/L Chloride 105 (98-110) mmol/L Carbon Dioxide 21 (21-31) mmol/L BUN 5 L (6.0-23.0) mg/dL Creatinine 0.6 (0.6-1.5) mg/dL Est Cr Clr Drug Dosing 148.70 mL/min Estimated GFR (MDRD) > 60.0 ml/min Glucose 100 (60-110) mg/dL Calcium 8.4 L (8.8-10.8) mg/dL Total Bilirubin 3.2 H (0.1-1.5) mg/dL AST 63 H (5-40) IU/L ALT 31 (8-54) IU/L Alkaline Phosphatase 108 (40-150) Total Protein 7.4 (6.0-8.0) g/dL Albumin 3.4 L (3.5-5.0) g/dL Globulin 4.0 H (2.0-3.5) g/dL Albumin/Globulin Ratio 0.9 L (1.3-2.8) Amylase 36 (10-90) U/L Lipase 31 (7-80) U/L Urine Color Urine Appearance Urine pH (5.0-8.0) Ur Specific [place] (1.001-1.035) Urine Protein (NEGATIVE) mg/dL Urine Glucose (UA) (NEGATIVE) mg/dL Urine Ketones (NEGATIVE) mg/dL Urine Occult Blood (NEGATIVE) Urine Nitrite (NEGATIVE) Urine Bilirubin (NEGATIVE) Urine Urobilinogen (<2.0) EU/dL Ur Leukocyte Esterase (NEGATIVE) Urine RBC (0-2/HPF) Urine WBC (0-5/HPF) Ur Epithelial Cells (NONE-FEW) Ur Renal Epithelial Cell Urine Bacteria (NEGATIVE) 09/29/17 Range/Units 19:29 WBC (4.0-11.0) K/uL RBC (4.50-5.90) M/uL Hgb (13.0-17.0) g/dL Hct (38.0-50.0) % MCV (80.0-98.0) fL MCH (27.0-32.0) pg MCHC (31.0-37.0) g/dL RDW Std Deviation (28.0-62.0) fl RDW Coeff of Satish (11.0-15.0) % Plt Count (150-400) K/uL Neut % (Auto) (48.0-80.0) % Lymph % (Auto) (16.0-40.0) % Gibson % (Auto) (0.0-15.0) % Eos % (Auto) (0.0-7.0) % Baso % (Auto) (0.0-1.5) % Neut # (Auto) (1.4-5.7) K/uL Lymph # (Auto) (0.6-2.4) K/uL Gibson # (Auto) (0.0-0.8) K/uL Eos # (Auto) (0.0-0.7) K/uL Baso # (Auto) (0.0-0.1) K/uL Nucleated RBC % /100WBC Nucleated RBCs # K/uL INR (0.86-1.11) Sodium (136-146) mmol/L Potassium (3.5-5.1) mmol/L Chloride (98-110) mmol/L Carbon Dioxide (21-31) mmol/L BUN (6.0-23.0) mg/dL Creatinine (0.6-1.5) mg/dL Est Cr Clr Drug Dosing mL/min Estimated GFR (MDRD) ml/min Glucose (60-110) mg/dL Calcium (8.8-10.8) mg/dL Total Bilirubin (0.1-1.5) mg/dL AST (5-40) IU/L ALT (8-54) IU/L Alkaline Phosphatase (40-150) Total Protein (6.0-8.0) g/dL Albumin (3.5-5.0) g/dL Globulin (2.0-3.5) g/dL Albumin/Globulin Ratio (1.3-2.8) Amylase (10-90) U/L Lipase (7-80) U/L Urine Color YELLOW Urine Appearance CLEAR Urine pH 7.5 (5.0-8.0) Ur Specific [place] 1.010 (1.001-1.035) Urine Protein NEGATIVE (NEGATIVE) mg/dL Urine Glucose (UA) NEGATIVE (NEGATIVE) mg/dL Urine Ketones NEGATIVE (NEGATIVE) mg/dL Urine Occult Blood NEGATIVE (NEGATIVE) Urine Nitrite NEGATIVE (NEGATIVE) Urine Bilirubin NEGATIVE (NEGATIVE) Urine Urobilinogen 0.2 (<2.0) EU/dL Ur Leukocyte Esterase NEGATIVE (NEGATIVE) Urine RBC 0-2 (0-2/HPF) Urine WBC 0-1 (0-5/HPF) Ur Epithelial Cells RARE (NONE-FEW) Ur Renal Epithelial Cell RARE Urine Bacteria RARE (NEGATIVE) Meds: Medications Generic Name Dose Route Start Last Admin Trade Name Freq PRN Reason Stop Dose Admin Piperacillin Sod/Tazobactam 50 mls @ 100 mls/hr 09/29/17 21:45 09/29/17 21:52 Sod 3.375 gm/ Sodium Chloride IV 100 mls/hr Q6H ELINA Administration Discontinued Medications Generic Name Dose Route Start Last Admin Trade Name Luca PRN Reason Stop Dose Admin Hydromorphone HCl 1 mg 09/29/17 19:19 09/29/17 19:32 Dilaudid IVPUSH 09/29/17 19:20 1 mg ONETIME ONE Administration Sodium Chloride 1,000 mls @ 999 mls/hr 09/29/17 19:19 09/29/17 19:32 Normal Saline IV 09/29/17 20:19 999 mls/hr STAT ONE Administration Iopamidol 100 ml 09/29/17 19:27 09/29/17 19:28 Isovue Multipack-370 (76%) IVPUSH 09/29/17 19:28 100 ml ONETIME STA Administration Ondansetron HCl 4 mg 09/29/17 19:19 09/29/17 19:32 Zofran IVPUSH 09/29/17 19:20 4 mg ONETIME ONE Administration - Re-Assessments/Exams Free Text/Narrative Re-Assessment/Exam: 09/29/17 22:19 I am concerned about the possibility of spontaneous bacterial peritonitis. with low platelets will start antibiotics now but may need interventional radiology for peritoneal tap. I discussed his cirrhosis and I advised that it is severe. Departure - Departure Time of Disposition: 22:23 Disposition: Admitted As Inpatient 66 Condition: Fair Clinical Impression: Spontaneous bacterial peritonitis, Alcoholism - Discharge Information Referrals: PCP,None [Primary Care Provider] - Forms: ED Department Discharge Additional Instructions: I advised admission; he concurs. He has a prior history of upper gastrointestinal bleeding in the past. NO recent vomiting, melena or hematochezia. - My Orders Last 24 Hours: My Active Orders 09/29/17 21:45 Piperacillin/Tazobactam [Piperacil-Tazobact] 3.375 gm Sodium Chloride 0.9% [ Normal Saline] 50 ml IV Q6H 09/29/17 21:52 Blood Culture x2 Reflex Set [OM.PC] Stat 09/29/17 21:55 AMMONIA VENOUS [CHEM] Stat CULTURE BLOOD [BC] Stat 09/29/17 22:00 CULTURE BLOOD [BC] Stat - Assessment/Plan Last 24 Hours: My Active Orders 09/29/17 21:45 Piperacillin/Tazobactam [Piperacil-Tazobact] 3.375 gm Sodium Chloride 0.9% [ Normal Saline] 50 ml IV Q6H 09/29/17 21:52 Blood Culture x2 Reflex Set [OM.PC] Stat 09/29/17 21:55 AMMONIA VENOUS [CHEM] Stat CULTURE BLOOD [BC] Stat 09/29/17 22:00 CULTURE BLOOD [BC] Stat
[2017-09-29] MEDS ORDERED: MVI, Adult with Vitamin K 10 ML, Thiamine 100 MG, Folic Acid 1 MG in Sodium Chloride 0.... IV ONE ×4 (22:25)
[2017-09-29] MEDS ORDERED: Ondansetron 4 MG/2 ML SDV IVPUSH PRN (22:25)
[2017-09-29] MEDS ORDERED: Bisacodyl 5 MG Tab PO PRN (22:25)
[2017-09-29] MEDS ORDERED: Temazepam 15 MG Cap PO PRN (22:25)
[2017-09-29] MEDS: HYDROmorphone 2 MG/ML Syringe IVPUSH PRN (23:48)
[2017-09-30] MEDS: Nicotine 14 MG/24 Hr Patch TRDERM SCH ×2 (01:08→08:24)
[2017-09-30] MEDS: Piperacillin/Tazobactam 3.375 GM in Sodium Chloride 0.9% 50 ML IV SCH ×2 (03:13→11:11)
[2017-09-30 06:34] LABS: CHLORIDE,CL 105 mmol/L (98-110); SODIUM,NA 138 mmol/L (136-146)
[2017-09-30] MEDS ORDERED: Magnesium Sulfate/Water 2 GM in Premix Bag 1 BAG IV ONE (07:59)
[2017-09-30] MEDS: Spironolactone 25 MG Tab PO SCH ×2 (08:21→21:06)
[2017-09-30] MEDS: Furosemide 40 MG Tab PO SCH ×2 (08:21→14:59)
[2017-09-30] MEDS: Pantoprazole 40 MG Tab.CR PO SCH (08:22)
[2017-09-30] MEDS: HYDROmorphone 2 MG/ML Syringe IVPUSH PRN ×2 (08:36→21:50)
[2017-09-30] MEDS ORDERED: Non-Formulary Medication 1 Each (Potassium Chloride [Potassium Chloride] 1 TAB) PO SCH (09:00)
[2017-09-30] MEDS ORDERED: NADOLOL PO SCH (09:00)
[2017-09-30] MEDS: Potassium Chloride 20 MEQ Tab.ER PO SCH (09:12)
[2017-09-30] MEDS: LORazepam 2 MG/ML SDV IVPUSH PRN (09:25)
--- NOTE | 2017-09-30 13:42 | PCM.HP ---
H&P History of Present Illness - General Date of Service: 09/30/17 Admit Problem/Dx: Admission Diagnosis/Problem Admission Diagnosis/Problem Abdominal pain Source of Information: Patient History Limitations: Reports: No Limitations - History of Present Illness Initial Comments - Free Text/Narative: Admit date September 30, 2017 This is a 52-year-old male with a history of chronic liver disease, chronic alcoholism, esophageal varices, presented to the emergency department last night complaining of abdominal pain along with worsening distention. This patient was then admitted overnight into the ICU with concern of acute alcohol withdrawal, abdominal ascites which may be complicated by SBP. When talking to the patient, he does tell me that he has a lengthy history of this requiring admissions in the past. He tells me that he has had to have his "stomach tapped "in the past. Assessing the patient in the morning, the patient complains of abdominal pain and tenderness. He denies any fevers chills nausea or vomiting. He denies any hallucinations. He has no other complaints. abdomen Pain Score (Numeric/FACES): 2 - Related Data Allergies/Adverse Reactions: Allergies Allergy/AdvReac Type Severity Reaction Status Date / Time No Known Allergies Allergy Verified 09/29/17 19:17 Home Medications: Home Meds Ferrous Sulfate 325 mg PO BID 07/18/17 [History] Furosemide [Furosemide] 40 mg PO BID 07/18/17 [History] Nadolol [Nadolol] 20 mg PO BID 07/18/17 [History] Pantoprazole [ProTONIX] 40 mg PO DAILY 07/18/17 [History] Potassium Chloride 20 meq PO DAILY 07/18/17 [History] Spironolactone [Spironolactone] 100 mg PO BID 07/18/17 [History] Past Medical History - Past Health History Medical/Surgical History: Denies Medical/Surgical History HEENT History: Reports: None Cardiovascular History: Reports: Hypertension Respiratory History: Reports: None Gastrointestinal History: Reports: GERD, GI Bleed Genitourinary History: Reports: None Musculoskeletal History: Reports: None Neurological History: Reports: None Psychiatric History: Reports: Addiction, Anxiety Endocrine/Metabolic History: Reports: None Hematologic History: Reports: None Immunologic History: Reports: None Oncologic (Cancer) History: Reports: None Dermatologic History: Reports: None - Infectious Disease History Infectious Disease History: Reports: None - Past Surgical History Head Surgeries/Procedures: Reports: None Cardiovascular Surgical History: Reports: None Respiratory Surgical History: Reports: None GI Surgical History: Reports: Colonoscopy, EGD, Other (See Below) Other GI Surgeries/Procedures: "clamps in stomach 5x" Male Surgical History: Reports: None Musculoskeletal Surgical History: Reports: None Social & Family History - Family History Family Medical History: Noncontributory - Tobacco Use Smoking Status *Q: Current Every Day Smoker Years of Tobacco use: 40 Packs/Tins Daily: 0.5 Used Tobacco, but Quit: No Second Hand Smoke Exposure: No - Caffeine Use Caffeine Use: Reports: Coffee, Energy Drinks, Soda, Tea - Alcohol Use Days Per Week of Alcohol Use: 7 Number of Drinks Per Day: 8 Total Drinks Per Week: 56 Date of Last Drink: 09/28/17 Time of Last Drink: 21:00 - Recreational Drug Use Recreational Drug Use: No - Living Situation & Occupation Living situation: Reports: with Family, Other Occupation: Unemployed H&P Review of Systems - Review of Systems: Review Of Systems: See Below General: Reports: Other (abdominal pain) HEENT: Reports: No Symptoms Pulmonary: Reports: No Symptoms Cardiovascular: Reports: No Symptoms Gastrointestinal: Reports: Other (see hpi. Complains of worsening abdominal distention.) Genitourinary: Reports: No Symptoms Musculoskeletal: Reports: No Symptoms Skin: Reports: No Symptoms. Denies: Jaundice Psychiatric: Reports: No Symptoms Neurological: Reports: Tremors Hematologic/Lymphatic: Reports: No Symptoms Immunologic: Reports: No Symptoms Exam - Exam Exam: See Below - Vital Signs Vital Signs: Last Vital Signs Temp 37.3 C 09/30/17 08:00 Pulse 86 09/30/17 09:12 Resp 14 09/30/17 12:00 BP 124/67 09/30/17 11:00 Pulse Ox 92 L 09/30/17 12:00 Weight: 95.9 kg - Exam General: Alert, Oriented, Cooperative, Lethargic HEENT: Conjunctiva Clear, Mucosa Moist & [place], TMs Clear, Glasses Neck: Supple, Trachea Midline. No: Carotid Bruit, JVD Lungs: Clear to Auscultation, Normal Respiratory Effort Cardiovascular: Regular Rate, Regular Rhythm, Normal S1, Normal S2 GI/Abdominal Exam: Other (signicant diffuse abdominal tenderness with moderate ascites. ) Back Exam: Normal Inspection Neurological: Other (+ asterixis) Neuro Extensive - Mental Status: Alert, Oriented x3 Neuro Extensive - Motor, Sensory, Reflexes: Tremor Psychiatric: Alert, Withdrawal Symptoms - Patient Data Lab Results Last 24 hrs: Laboratory Results - last 24 hr 09/30/17 09/30/17 09/30/17 Range/Units 05:24 05:24 05:24 WBC 2.98 L (4.0-11.0) K/uL RBC 3.17 L (4.50-5.90) M/uL Hgb 9.0 L (13.0-17.0) g/dL Hct 29.6 L (38.0-50.0) % MCV 93.4 (80.0-98.0) fL MCH 28.4 (27.0-32.0) pg MCHC 30.4 L (31.0-37.0) g/dL RDW Std Deviation 58.5 (28.0-62.0) fl RDW Coeff of Satish 17 H (11.0-15.0) % Plt Count 30 L (150-400) K/uL Neut % (Auto) 57.5 (48.0-80.0) % Lymph % (Auto) 21.8 (16.0-40.0) % Mot[place] % (Auto) 19.1 H (0.0-15.0) % Eos % (Auto) 1.3 (0.0-7.0) % Baso % (Auto) 0.3 (0.0-1.5) % Neut # (Auto) 1.7 (1.4-5.7) K/uL Lymph # (Auto) 0.7 (0.6-2.4) K/uL [place] # (Auto) 0.6 (0.0-0.8) K/uL Eos # (Auto) 0.0 (0.0-0.7) K/uL Baso # (Auto) 0.0 (0.0-0.1) K/uL Nucleated RBC % 0.0 /100WBC Nucleated RBCs # 0 K/uL INR 1.26 H (0.86-1.11) Sodium 138 (136-146) mmol/L Potassium 3.7 (3.5-5.1) mmol/L Chloride 105 (98-110) mmol/L Carbon Dioxide 23 (21-31) mmol/L BUN 6 (6.0-23.0) mg/dL Creatinine 0.7 (0.6-1.5) mg/dL Est Cr Clr Drug Dosing 127.46 mL/min Estimated GFR (MDRD) > 60.0 ml/min Glucose 87 (60-110) mg/dL Calcium 7.7 L (8.8-10.8) mg/dL Magnesium 1.2 L (1.5-2.3) mEq/L Total Bilirubin 2.4 H (0.1-1.5) mg/dL AST 48 H (5-40) IU/L ALT 25 (8-54) IU/L Alkaline Phosphatase 88 (40-150) Total Protein 6.2 (6.0-8.0) g/dL Albumin 2.9 L (3.5-5.0) g/dL Globulin 3.3 (2.0-3.5) g/dL Albumin/Globulin Ratio 0.9 L (1.3-2.8) Result Diagrams: 09/30/17 05:24 09/30/17 05:24 *Q Meaningful Use (ADM) - VTE *Q VTE Criteria *Q: - Stroke *Q Stroke Criteria *Q: - AMI *Q AMI Criteria *Q: - Problem List (1) Alcoholism SNOMED Code(s): 0531007 ICD Code: F10.20 - ALCOHOL DEPENDENCE, UNCOMPLICATED Status: Acute Current Visit: Yes (2) Spontaneous bacterial peritonitis SNOMED Code(s): 01759117 ICD Code: K65.2 - SPONTANEOUS BACTERIAL PERITONITIS Status: Acute Current Visit: Yes (3) Abdominal pain SNOMED Code(s): 75398695 ICD Code: R10.9 - UNSPECIFIED ABDOMINAL PAIN Status: Acute Current Visit : No Qualifiers: Abdominal location: upper abdomen, unspecified Qualified Code(s): R10.10 - Upper abdominal pain, unspecified (4) Alcohol intoxication SNOMED Code(s): 26374006 ICD Code: F10.929 - ALCOHOL USE, UNSPECIFIED WITH INTOXICATION, UNSPECIFIED Status: Acute Current Visit: No Qualifiers: Complication of substance-induced condition: uncomplicated Qualified Code(s ): F10.920 - Alcohol use, unspecified with intoxication, uncomplicated (5) Anemia SNOMED Code(s): 555940051 ICD Code: D64.9 - ANEMIA, UNSPECIFIED Status: Acute Current Visit: No Qualifiers: Anemia type: unspecified type Qualified Code(s): D64.9 - Anemia, unspecified (6) Thrombocytopenia SNOMED Code(s): 382428823 ICD Code: D69.6 - THROMBOCYTOPENIA, UNSPECIFIED Status: Acute Priority: Medium Current Visit: No Problem List Initiated/Reviewed/Updated: Yes Orders Last 24hrs: Active Orders 24 hr Category Date Time Status Antiembolic Devices [RC] PER UNIT ROUTINE Care 09/30/17 05:03 Active Guidance Paracentesis [US] Routine Exams 09/30/17 Ordered US Guidance Paracentesis NC [CR] Urgent Exams 09/30/17 12:16 Ordered CELL COUNT,BODY FLUID [BF] Routine Lab 09/30/17 12:20 Uncollected CULTURE BODY FLUID + SMEAR [RM] Routine Lab 09/30/17 12:20 Uncollected GLUCOSE,BODY FLUID [BF] Routine Lab 09/30/17 12:20 Uncollected GRAM STAIN [RM] Routine Lab 09/30/17 12:23 Uncollected LACTATE DEHYDROGENASE,BODY FL [BF] Routine Lab 09/30/17 12:20 Uncollected PH,BODY FLUID [BF] Routine Lab 09/30/17 12:20 Uncollected PROTEIN,BODY FLUID [BF] Routine Lab 09/30/17 12:20 Uncollected Cefotaxime [Claforan] 2 gm Med 09/30/17 12:30 Active Sodium Chloride 0.9% [Normal Saline] 100 ml IV Q8H Furosemide [Lasix] Med 09/30/17 08:00 Active 40 mg PO BIDDIURETIC Nadolol [Naldol] Med 09/30/17 09:00 Active 20 mg PO BID Nicotine [Habitrol] Med 09/30/17 00:45 Active 14 mg TRDERM DAILY Pantoprazole [ProTONIX] Med 09/30/17 09:00 Active 40 mg PO DAILY Potassium Chloride [Klor-Con M20] Med 09/30/17 09:00 Active 20 meq PO DAILY Spironolactone [Aldactone] Med 09/30/17 09:00 Active 100 mg PO BID SCD [Sequential Compression Device] [OM.PC] Routine Oth 09/30/17 05:02 Ordered Medication Orders Bisacodyl (Dulcolax) 5 mg PO DAILY PRN PRN Reason: Constipation Furosemide (Lasix) 40 mg PO BIDDIURETIC [facility] Last Admin: 09/30/17 08:21 Dose: 40 mg Hydromorphone HCl (Dilaudid) 1 mg IVPUSH Q2H PRN PRN Reason: Pain (severe 7-10) Last Admin: 09/30/17 08:36 Dose: 1 mg Admin: 09/29/17 23:48 Dose: 1 mg Cefotaxime Sodium 2 gm/ Sodium (Chloride) 100 mls @ 200 mls/hr IV Q8H ELINA Last Admin: 09/30/17 12:45 Dose: 200 mls/hr Lorazepam (Ativan) 0 mg IVPUSH Q2H PRN; Protocol PRN Reason: Anxiety Last Admin: 09/30/17 09:25 Dose: 2 mg Nadolol (Naldol) 20 mg PO BID [facility] Last Admin: 09/30/17 09:12 Dose: 20 mg Nicotine (Habitrol) 14 mg TRDERM DAILY [facility] Last Admin: 09/30/17 08:24 Dose: 14 mg Admin: 09/30/17 01:08 Dose: 14 mg Ondansetron HCl (Zofran) 4 mg IVPUSH Q4H PRN PRN Reason: Nausea Last Admin: 09/30/17 09:25 Dose: 4 mg Pantoprazole Sodium (Protonix) 40 mg PO DAILY [facility] Last Admin: 09/30/17 08:22 Dose: 40 mg Potassium Chloride (Klor-Con M20) 20 meq PO DAILY [facility] Last Admin: 09/30/17 09:12 Dose: 20 meq Spironolactone (Aldactone) 100 mg PO BID [facility] Last Admin: 09/30/17 08:21 Dose: 100 mg Temazepam (Restoril) 15 mg PO BEDTIME PRN PRN Reason: Sleep Assessment/Plan Comment:: 1. Abdominal Ascites - discussed case with radiology who agrees to do an abdominal paracentesis for diagnostic purposes. Fluid analysis orders placed. We 'll follow up once available. Patient is now on cefotaxime 2g IV q8hrs for SBP prophylaxis. 2. Acute Alcohol Withdrawal - will continue to monitor with serial CIWA scores and treat accordingly with ativan protocol 3. Anemia/Thrombocytopenia - continue to monitor. AM labs ordered. 4. Hypomagnesemia - Mangnesium 2g IV once given. Recheck in AM.
--- NOTE | 2017-09-30 15:14 | US ---
EXAMINATION: Ultrasound guided paracentesis. HISTORY: Ascites. FINDINGS/TECHNIQUE: The procedure, risks, and benefits were discussed with the patient. Written informed consent was obta ined. The right lower quadrant was sterilely prepped and draped. 1% lidocaine was administered for lo alex anesthesia. Using ultrasound guidance a 4 Malay one-step needle was advanced. The catheter was l eft in place. 3 L of straw-colored fluid was collected. The patient tolerated the procedure well. IMPRESSION: Successful US guided paracentesis.
--- NOTE | 2017-09-30 15:34 | CT ---
EXAM DATE: 09/29/17 PATIENT'S AGE: 52 Patient: HAIDER LOPEZ Facility: [place], [place] Site . Site : 1965 Study: CT Abdomen/Pelvis [id number] 8:38:07 PM Ordering Physician: Doctor Manzo Final Report: INDICATION: CHRONIC ETOH ABUSE ABD DISTENSION LOWER EXTREMITY EDEMA INDICATION: Chronic alcohol abuse, abdominal distention, lower extremity edema. TECHNIQUE: 3 mm axial imaging has been performed through the abdomen and pelvis. Sagittal and coronal reconstructions have been obtained. COMPARISON: 09/11/2017. FINDINGS: Linear density in the left lung base is identified most compatible with some atelectasis. There is increasing ascites identified within the abdomen pelvis. There is now a moderate amount of ascites identified. Cirrhotic appearing liver is again noted with heterogeneous lobulated contours and enhancement. No definite mass is seen. Gallbladder is fluid filled and unremarkable. The spleen enhancement is within normal limits. The pancreas and bilateral adrenal glands are within normal limits. The kidneys demonstrate symmetric enhancement. There is no hydronephrosis. There is no retroperitoneal lymphadenopathy. Iliac yulisa chain and groin demonstrate no lymphadenopathy. There is ascites in the pelvis. No evidence for bowel obstruction. IMPRESSION: Moderate amount of ascites identified. Cirrhosis of the liver noted. No evidence for bowel obstruction. Dictated by Dyllan Nuñez MD @ 09/29/2017 8:52:21 PM Dictated by: Dyllan Nuñez MD @ 09/29/2017 20:52:27 (Electronic Signature) Report Signed by Proxy. RES[facility]MA
[2017-10-01] MEDS: LORazepam 2 MG/ML SDV IVPUSH PRN (00:03)
[2017-10-01 05:55] LABS: CHLORIDE,CL 104 mmol/L (98-110); SODIUM,NA 136 mmol/L (136-146)
[2017-10-01] MEDS ORDERED: Magnesium Sulfate/Water 2 GM in Premix Bag 1 BAG IV ONE (08:03)
[2017-10-01] MEDS: Nicotine 14 MG/24 Hr Patch TRDERM SCH (09:20)
[2017-10-01] MEDS: Potassium Chloride 20 MEQ Tab.ER PO SCH (09:21)
[2017-10-01] MEDS: Spironolactone 25 MG Tab PO SCH ×2 (09:23→22:20)
[2017-10-01] MEDS: Pantoprazole 40 MG Tab.CR PO SCH (09:23)
[2017-10-01] MEDS: Furosemide 40 MG Tab PO SCH ×2 (09:23→14:43)
--- NOTE | 2017-10-01 11:06 | PCM.PN ---
- General Info Date of Service: 10/01/17 Admission Dx/Problem (Free Text): Admission Diagnosis/Problem Admission Diagnosis/Problem Abdominal pain Subjective Update: 52M with past mhx of chronic alcoholism thats currently in ICU secondary to acute alcohol withdrawals. The patient was evaluated with paracentesis yesterday for concerns of possible SBP which has since been ruled out. Currently , at the bedside patient complains of shakiness, ongoing abdominal pain that has improved. Denies fevers, chills, nausea or vomiting. - Review of Systems General: Reports: Other (see HPI) - Patient Data Vitals - Most Recent: Last Vital Signs Temp 37.1 C 10/01/17 04:00 Pulse 86 09/30/17 20:00 Resp 15 10/01/17 07:00 BP 116/67 10/01/17 10:09 Pulse Ox 93 L 10/01/17 07:00 Weight - Most Recent: 92.8 kg I&O - Last 24 Hours: Intake & Output 09/30/17 10/01/17 10/01/17 22:59 06:59 14:59 Intake Total 950 800 Output Total 700 1300 Balance 250 -500 Lab Results Last 24 Hours: Laboratory Results - last 24 hr 09/30/17 10/01/17 10/01/17 Range/Units 13:35 05:20 05:20 WBC 3.36 L (4.0-11.0) K/uL RBC 3.17 L (4.50-5.90) M/uL Hgb 9.0 L (13.0-17.0) g/dL Hct 29.2 L (38.0-50.0) % MCV 92.1 (80.0-98.0) fL MCH 28.4 (27.0-32.0) pg MCHC 30.8 L (31.0-37.0) g/dL RDW Std Deviation 56.9 (28.0-62.0) fl RDW Coeff of Satish 17 H (11.0-15.0) % Plt Count 31 L (150-400) K/uL Neut % (Auto) 55.0 (48.0-80.0) % Lymph % (Auto) 26.5 (16.0-40.0) % [place] % (Auto) 17.0 H (0.0-15.0) % Eos % (Auto) 1.2 (0.0-7.0) % Baso % (Auto) 0.3 (0.0-1.5) % Neut # (Auto) 1.9 (1.4-5.7) K/uL Lymph # (Auto) 0.9 (0.6-2.4) K/uL [place] # (Auto) 0.6 (0.0-0.8) K/uL Eos # (Auto) 0.0 (0.0-0.7) K/uL Baso # (Auto) 0.0 (0.0-0.1) K/uL Nucleated RBC % 0.0 /100WBC Nucleated RBCs # 0 K/uL INR 1.25 H (0.86-1.11) Sodium (136-146) mmol/L Potassium (3.5-5.1) mmol/L Chloride (98-110) mmol/L Carbon Dioxide (21-31) mmol/L BUN (6.0-23.0) mg/dL Creatinine (0.6-1.5) mg/dL Est Cr Clr Drug Dosing Estimated GFR (MDRD) ml/min Glucose (60-110) mg/dL Calcium (8.8-10.8) mg/dL Magnesium (1.5-2.3) mEq/L Total Bilirubin (0.1-1.5) mg/dL AST (5-40) IU/L ALT (8-54) IU/L Alkaline Phosphatase (40-150) Total Protein (6.0-8.0) g/dL Albumin (3.5-5.0) g/dL Globulin (2.0-3.5) g/dL Albumin/Globulin Ratio (1.3-2.8) Fluid Type PER Fluid Color YELLOW Fluid Appearance CLEAR Fluid pH 7.0 Fluid WBC 0.17 K/uL Fluid RBC 0.00 M/uL Fluid Mononuclear Cell 92.9 % Fl Polymorphonucl Cell 7.1 % Fluid Glucose 129 mg/dL Fluid Total Protein < 1.6 g/dL Fluid LDH 58 U/L 10/01/17 Range/Units 05:20 WBC (4.0-11.0) K/uL RBC (4.50-5.90) M/uL Hgb (13.0-17.0) g/dL Hct (38.0-50.0) % MCV (80.0-98.0) fL MCH (27.0-32.0) pg MCHC (31.0-37.0) g/dL RDW Std Deviation (28.0-62.0) fl RDW Coeff of Satish (11.0-15.0) % Plt Count (150-400) K/uL Neut % (Auto) (48.0-80.0) % Lymph % (Auto) (16.0-40.0) % [place] % (Auto) (0.0-15.0) % Eos % (Auto) (0.0-7.0) % Baso % (Auto) (0.0-1.5) % Neut # (Auto) (1.4-5.7) K/uL Lymph # (Auto) (0.6-2.4) K/uL [place] # (Auto) (0.0-0.8) K/uL Eos # (Auto) (0.0-0.7) K/uL Baso # (Auto) (0.0-0.1) K/uL Nucleated RBC % /100WBC Nucleated RBCs # K/uL INR (0.86-1.11) Sodium 136 (136-146) mmol/L Potassium 3.6 (3.5-5.1) mmol/L Chloride 104 (98-110) mmol/L Carbon Dioxide 25 (21-31) mmol/L BUN 8 (6.0-23.0) mg/dL Creatinine 0.6 (0.6-1.5) mg/dL Est Cr Clr Drug Dosing TNP Estimated GFR (MDRD) > 60.0 ml/min Glucose 104 (60-110) mg/dL Calcium 7.9 L (8.8-10.8) mg/dL Magnesium 1.3 L (1.5-2.3) mEq/L Total Bilirubin 2.3 H (0.1-1.5) mg/dL AST 39 (5-40) IU/L ALT 24 (8-54) IU/L Alkaline Phosphatase 93 (40-150) Total Protein 5.9 L (6.0-8.0) g/dL Albumin 2.8 L (3.5-5.0) g/dL Globulin 3.1 (2.0-3.5) g/dL Albumin/Globulin Ratio 0.9 L (1.3-2.8) Fluid Type Fluid Color Fluid Appearance Fluid pH Fluid WBC K/uL Fluid RBC M/uL Fluid Mononuclear Cell % Fl Polymorphonucl Cell % Fluid Glucose mg/dL Fluid Total Protein g/dL Fluid LDH U/L [place] Results Last 24 Hours: Microbiology 09/30/17 12:20 Gram Stain - Preliminary Peritoneal Fluid Body Fluid Culture - Preliminary NO GROWTH AFTER 1 DAY Med Orders - Current: Current Medications Bisacodyl (Dulcolax) 5 mg PO DAILY PRN PRN Reason: Constipation Furosemide (Lasix) 40 mg PO BIDDIURETIC [facility] Last Admin: 10/01/17 09:23 Dose: 40 mg Hydromorphone HCl (Dilaudid) 1 mg IVPUSH Q2H PRN PRN Reason: Pain (severe 7-10) Last Admin: 09/30/17 21:50 Dose: 1 mg Lorazepam (Ativan) 0 mg IVPUSH Q2H PRN; Protocol PRN Reason: Anxiety Last Admin: 10/01/17 00:03 Dose: 1 mg Nadolol (Naldol) 20 mg PO BID [facility] Last Admin: 10/01/17 10:09 Dose: 20 mg Nicotine (Habitrol) 14 mg TRDERM DAILY [facility] Last Admin: 10/01/17 09:20 Dose: 14 mg Ondansetron HCl (Zofran) 4 mg IVPUSH Q4H PRN PRN Reason: Nausea Last Admin: 09/30/17 09:25 Dose: 4 mg Pantoprazole Sodium (Protonix) 40 mg PO DAILY [facility] Last Admin: 10/01/17 09:23 Dose: 40 mg Potassium Chloride (Klor-Con M20) 20 meq PO DAILY [facility] Last Admin: 10/01/17 09:21 Dose: 20 meq Spironolactone (Aldactone) 100 mg PO BID [facility] Last Admin: 10/01/17 09:23 Dose: 100 mg Temazepam (Restoril) 15 mg PO BEDTIME PRN PRN Reason: Sleep Discontinued Medications Hydromorphone HCl (Dilaudid) 1 mg IVPUSH ONETIME ONE Stop: 09/29/17 19:20 Last Admin: 09/29/17 19:32 Dose: 1 mg Sodium Chloride (Normal Saline) 1,000 mls @ 999 mls/hr IV STAT ONE Stop: 09/29/17 20:19 Last Admin: 09/29/17 19:32 Dose: 999 mls/hr Piperacillin Sod/Tazobactam (Sod 3.375 gm/ Sodium Chloride) 50 mls @ 100 mls/ hr IV Q6H [facility] Last Admin: 09/30/17 11:11 Dose: Not Given Multivitamins/Minerals 10 ml/Thiamine HCl 100 mg/ Folic Acid 1 mg/ Sodium Chloride 1,011.2 mls @ 100 mls/hr IV DAILY ONE Stop: 09/30/17 08:31 Last Admin: 09/29/17 23:15 Dose: 100 mls/hr Magnesium Sulfate 2 gm/ Premix 50 mls @ 25 mls/hr IV ONETIME ONE Stop: 09/30/17 09:58 Last Admin: 09/30/17 08:21 Dose: 25 mls/hr Cefotaxime Sodium 2 gm/ Sodium (Chloride) 100 mls @ 200 mls/hr IV Q8H [facility] Last Admin: 10/01/17 05:39 Dose: 200 mls/hr Magnesium Sulfate 2 gm/ Premix 50 mls @ 25 mls/hr IV ONETIME ONE Stop: 10/01/17 10:02 Last Admin: 10/01/17 09:20 Dose: 25 mls/hr Iopamidol (Isovue Multipack-370 (76%)) 100 ml IVPUSH ONETIME STA Stop: 09/29/17 19:28 Last Admin: 09/29/17 19:28 Dose: 100 ml Non-Formulary Medication (Nadolol [Nadolol]) 1 tab PO BID [facility] Non-Formulary Medication (Potassium Chloride [Potassium Chloride]) 1 tab PO DAILY [facility] Ondansetron HCl (Zofran) 4 mg IVPUSH ONETIME ONE Stop: 09/29/17 19:20 Last Admin: 09/29/17 19:32 Dose: 4 mg - Exam Quality Assessment: Supplemental Oxygen General: Alert, Oriented, Cooperative, No Acute Distress HEENT: Pupils Equal, Pupils Reactive Neck: Supple, No JVD Lungs: Clear to Auscultation, Normal Respiratory Effort Cardiovascular: Regular Rate, Regular Rhythm GI/Abdominal Exam: Normal Bowel Sounds, Distended, Tender, Other (ascites) Extremities: Normal Capillary Refill Skin: Warm, Intact Neurological: Other (bilateral hand tremor on outstretched arms) - Problem List & Annotations (1) Alcoholism SNOMED Code(s): 4267410 Code(s): F10.20 - ALCOHOL DEPENDENCE, UNCOMPLICATED Status: Acute Current Visit: Yes (2) Spontaneous bacterial peritonitis SNOMED Code(s): 40898647 Code(s): K65.2 - SPONTANEOUS BACTERIAL PERITONITIS Status: Acute Current Visit: Yes (3) Abdominal pain SNOMED Code(s): 05110370 Code(s): R10.9 - UNSPECIFIED ABDOMINAL PAIN Status: Acute Current Visit: No Qualifiers: Abdominal location: upper abdomen, unspecified Qualified Code(s): R10.10 - Upper abdominal pain, unspecified (4) Alcohol intoxication SNOMED Code(s): 64661148 Code(s): F10.929 - ALCOHOL USE, UNSPECIFIED WITH INTOXICATION, UNSPECIFIED Status: Acute Current Visit: No Qualifiers: Complication of substance-induced condition: uncomplicated Qualified Code(s ): F10.920 - Alcohol use, unspecified with intoxication, uncomplicated (5) Anemia SNOMED Code(s): 385781530 Code(s): D64.9 - ANEMIA, UNSPECIFIED Status: Acute Current Visit: No Qualifiers: Anemia type: unspecified type Qualified Code(s): D64.9 - Anemia, unspecified (6) Thrombocytopenia SNOMED Code(s): 516533120 Code(s): D69.6 - THROMBOCYTOPENIA, UNSPECIFIED Status: Acute Priority: Medium Current Visit: No - Problem List Review Problem List Initiated/Reviewed/Updated: Yes - Plan Plan:: 1. Abdominal Ascites - SBP ruled out with paracentesis. Discontinue cefepime. 2. Acute Alcohol Withdrawal - will continue to monitor with serial CIWA scores and treat accordingly with ativan protocol. Transfer to regular floor. 3. Anemia/Thrombocytopenia - continue to monitor. AM labs ordered. 4. Hypomagnesemia - Mangnesium 2g IV once given. Recheck in AM.
[2017-10-01] MEDS ORDERED: Bisacodyl 5 MG Tab PO PRN (17:09)
[2017-10-01] MEDS: Thiamine 100 MG Tab PO SCH ×2 (17:38→22:20)
[2017-10-01] MEDS: Folic Acid 1 MG Tab PO SCH ×2 (17:38→22:20)
[2017-10-02 05:38] LABS: CHLORIDE,CL 108 mmol/L (98-110); SODIUM,NA 138 mmol/L (136-146)
[2017-10-02] MEDS ORDERED: Magnesium Sulfate/Water 2 GM in Premix Bag 1 BAG IV ONE (07:55)
[2017-10-02] MEDS: Pantoprazole 40 MG Tab.CR PO SCH (08:58)
[2017-10-02] MEDS: Potassium Chloride 20 MEQ Tab.ER PO SCH (08:58)
[2017-10-02] MEDS: Furosemide 40 MG Tab PO SCH ×2 (08:58→13:10)
[2017-10-02] MEDS: Nicotine 14 MG/24 Hr Patch TRDERM SCH (08:58)
[2017-10-02] MEDS: Spironolactone 25 MG Tab PO SCH ×2 (08:58→20:51)
[2017-10-02] MEDS: Lactulose Soln 10 GM/15 ML 15 ML UD Cup PO SCH ×2 (12:00→20:51)
--- NOTE | 2017-10-02 12:33 | PCM.PN ---
- General Info Date of Service: 10/02/17 Subjective Update: 52M with past mhx of chronic alcoholism and abdominal ascites now on the floor being transferred from the ICU. Patient currently shows no signs of acute alcohol withdrawal CIWA scores of 2. Talking to the patient this morning, he tells me that he has an ongoing headache. He also complains of abdominal pain that has been persistent but improving. Denies any nausea or shakiness. Denies any hallucinations. - Review of Systems General: Reports: Other (See history of present illness) - Patient Data Vitals - Most Recent: Last Vital Signs Temp 37.2 C 10/02/17 08:00 Pulse 84 10/02/17 09:07 Resp 16 10/02/17 08:00 BP 106/60 10/02/17 09:07 Pulse Ox 94 L 10/02/17 08:00 Weight - Most Recent: 92.215 kg I&O - Last 24 Hours: Intake & Output 10/01/17 10/02/17 10/02/17 22:59 06:59 14:59 Intake Total 900 500 Output Total 1030 1600 Balance -130 -1100 Lab Results Last 24 Hours: Laboratory Results - last 24 hr 10/02/17 10/02/17 10/02/17 Range/Units 04:54 04:54 04:54 WBC 3.73 L (4.0-11.0) K/uL RBC 3.20 L (4.50-5.90) M/uL Hgb 9.1 L (13.0-17.0) g/dL Hct 29.5 L (38.0-50.0) % MCV 92.2 (80.0-98.0) fL MCH 28.4 (27.0-32.0) pg MCHC 30.8 L (31.0-37.0) g/dL RDW Std Deviation 57.6 (28.0-62.0) fl RDW Coeff of Satish 17 H (11.0-15.0) % Plt Count 35 L (150-400) K/uL Add Manual Diff YES Neutrophils % (Manual) 55 (48.0-80.0) % Band Neutrophils % 2 % Lymphocytes % (Manual) 30 (16.0-40.0) % Monocytes % (Manual) 10 (0.0-15.0) % Eosinophils % (Manual) 1 (0.0-7.0) % Basophils % (Manual) 2 H (0.0-1.5) % Nucleated RBC % 0.0 /100WBC Absolute Seg Neuts 2.1 (1.4-5.7) Band Neutrophils # 0.1 Lymphocytes # (Manual) 1.1 (0.6-2.4) Monocytes # (Manual) 0.4 (0.0-0.8) Eosinophils # (Manual) 0.0 (0.0-0.7) Basophils # (Manual) 0.1 (0.0-0.1) Nucleated RBCs # 0 K/uL INR 1.28 H (0.86-1.11) Sodium 138 (136-146) mmol/L Potassium 3.8 (3.5-5.1) mmol/L Chloride 108 (98-110) mmol/L Carbon Dioxide 23 (21-31) mmol/L BUN 9 (6.0-23.0) mg/dL Creatinine 0.7 (0.6-1.5) mg/dL Est Cr Clr Drug Dosing TNP Estimated GFR (MDRD) > 60.0 ml/min Glucose 119 H (60-110) mg/dL Calcium 8.4 L (8.8-10.8) mg/dL Magnesium 1.4 L (1.5-2.3) mEq/L Total Bilirubin 1.8 H (0.1-1.5) mg/dL AST 40 (5-40) IU/L ALT 22 (8-54) IU/L Alkaline Phosphatase 98 (40-150) Total Protein 6.2 (6.0-8.0) g/dL Albumin 2.8 L (3.5-5.0) g/dL Globulin 3.4 (2.0-3.5) g/dL Albumin/Globulin Ratio 0.8 L (1.3-2.8) [place] Results Last 24 Hours: Microbiology 09/30/17 12:20 Gram Stain - Preliminary Peritoneal Fluid Body Fluid Culture - Preliminary NO GROWTH AFTER 1 DAY Med Orders - Current: Current Medications Bisacodyl (Dulcolax) 5 mg PO DAILY PRN PRN Reason: Constipation Bisacodyl (Dulcolax) 10 mg PO ASDIRECTED PRN PRN Reason: Constipation Folic Acid (Folic Acid) 1 mg PO BEDTIME [facility] Last Admin: 10/01/17 22:20 Dose: 1 mg Furosemide (Lasix) 40 mg PO BIDDIURETIC [facility] Last Admin: 10/02/17 08:58 Dose: 40 mg Hydromorphone HCl (Dilaudid) 1 mg IVPUSH Q2H PRN PRN Reason: Pain (severe 7-10) Last Admin: 09/30/17 21:50 Dose: 1 mg Lactulose (Chronulac) 10 gm PO BID [facility] Last Admin: 10/02/17 12:00 Dose: 10 gm Lorazepam (Ativan) 0 mg IVPUSH Q2H PRN; Protocol PRN Reason: Anxiety Last Admin: 10/01/17 00:03 Dose: 1 mg Nadolol (Naldol) 20 mg PO BID [facility] Last Admin: 10/02/17 09:07 Dose: 20 mg Nicotine (Habitrol) 14 mg TRDERM DAILY [facility] Last Admin: 10/02/17 08:58 Dose: 14 mg Ondansetron HCl (Zofran) 4 mg IVPUSH Q4H PRN PRN Reason: Nausea Last Admin: 09/30/17 09:25 Dose: 4 mg Pantoprazole Sodium (Protonix) 40 mg PO DAILY [facility] Last Admin: 10/02/17 08:58 Dose: 40 mg Potassium Chloride (Klor-Con M20) 20 meq PO DAILY [facility] Last Admin: 10/02/17 08:58 Dose: 20 meq Spironolactone (Aldactone) 100 mg PO BID [facility] Last Admin: 10/02/17 08:58 Dose: 100 mg Temazepam (Restoril) 15 mg PO BEDTIME PRN PRN Reason: Sleep Thiamine HCl (Vitamin B-1) 100 mg PO BEDTIME [facility] Last Admin: 10/01/17 22:20 Dose: 100 mg Discontinued Medications Hydromorphone HCl (Dilaudid) 1 mg IVPUSH ONETIME ONE Stop: 09/29/17 19:20 Last Admin: 09/29/17 19:32 Dose: 1 mg Sodium Chloride (Normal Saline) 1,000 mls @ 999 mls/hr IV STAT ONE Stop: 09/29/17 20:19 Last Admin: 09/29/17 19:32 Dose: 999 mls/hr Piperacillin Sod/Tazobactam (Sod 3.375 gm/ Sodium Chloride) 50 mls @ 100 mls/ hr IV Q6H [facility] Last Admin: 09/30/17 11:11 Dose: Not Given Multivitamins/Minerals 10 ml/Thiamine HCl 100 mg/ Folic Acid 1 mg/ Sodium Chloride 1,011.2 mls @ 100 mls/hr IV DAILY ONE Stop: 09/30/17 08:31 Last Admin: 09/29/17 23:15 Dose: 100 mls/hr Magnesium Sulfate 2 gm/ Premix 50 mls @ 25 mls/hr IV ONETIME ONE Stop: 09/30/17 09:58 Last Admin: 09/30/17 08:21 Dose: 25 mls/hr Cefotaxime Sodium 2 gm/ Sodium (Chloride) 100 mls @ 200 mls/hr IV Q8H [facility] Last Admin: 10/01/17 05:39 Dose: 200 mls/hr Magnesium Sulfate 2 gm/ Premix 50 mls @ 25 mls/hr IV ONETIME ONE Stop: 10/01/17 10:02 Last Admin: 10/01/17 09:20 Dose: 25 mls/hr Magnesium Sulfate 2 gm/ Premix 50 mls @ 25 mls/hr IV ONETIME ONE Stop: 10/02/17 09:54 Last Admin: 10/02/17 08:58 Dose: 25 mls/hr Iopamidol (Isovue Multipack-370 (76%)) 100 ml IVPUSH ONETIME STA Stop: 09/29/17 19:28 Last Admin: 09/29/17 19:28 Dose: 100 ml Non-Formulary Medication (Nadolol [Nadolol]) 1 tab PO BID [facility] Non-Formulary Medication (Potassium Chloride [Potassium Chloride]) 1 tab PO DAILY [facility] Ondansetron HCl (Zofran) 4 mg IVPUSH ONETIME ONE Stop: 09/29/17 19:20 Last Admin: 09/29/17 19:32 Dose: 4 mg - Exam Quality Assessment: No: Supplemental Oxygen General: Alert, Oriented HEENT: Pupils Equal, Pupils Reactive Neck: Supple Lungs: Clear to Auscultation, Normal Respiratory Effort Cardiovascular: Regular Rate, Regular Rhythm GI/Abdominal Exam: Other (Generalized ascites. No tenderness to palpation.) Extremities: Normal Inspection, Normal Range of Motion, No Pedal Edema Skin: Warm, Intact Neurological: No New Focal Deficit - Problem List & Annotations (1) Alcoholism SNOMED Code(s): 9686492 Code(s): F10.20 - ALCOHOL DEPENDENCE, UNCOMPLICATED Status: Acute Current Visit: Yes (2) Spontaneous bacterial peritonitis SNOMED Code(s): 90245918 Code(s): K65.2 - SPONTANEOUS BACTERIAL PERITONITIS Status: Acute Current Visit: Yes (3) Abdominal pain SNOMED Code(s): 32242422 Code(s): R10.9 - UNSPECIFIED ABDOMINAL PAIN Status: Acute Current Visit: No Qualifiers: Abdominal location: upper abdomen, unspecified Qualified Code(s): R10.10 - Upper abdominal pain, unspecified (4) Alcohol intoxication SNOMED Code(s): 45035265 Code(s): F10.929 - ALCOHOL USE, UNSPECIFIED WITH INTOXICATION, UNSPECIFIED Status: Acute Current Visit: No Qualifiers: Complication of substance-induced condition: uncomplicated Qualified Code(s ): F10.920 - Alcohol use, unspecified with intoxication, uncomplicated (5) Anemia SNOMED Code(s): 493339820 Code(s): D64.9 - ANEMIA, UNSPECIFIED Status: Acute Current Visit: No Qualifiers: Anemia type: unspecified type Qualified Code(s): D64.9 - Anemia, unspecified (6) Thrombocytopenia SNOMED Code(s): 730861787 Code(s): D69.6 - THROMBOCYTOPENIA, UNSPECIFIED Status: Acute Priority: Medium Current Visit: No - Problem List Review Problem List Initiated/Reviewed/Updated: Yes - My Orders Last 24 Hours: My Active Orders 10/01/17 11:38 Transfer Patient (Change bed) [ADT] Routine 10/01/17 17:09 Bladder Scan [RC] ONETIME Bisacodyl [Dulcolax] 10 mg PO ASDIRECTED PRN 10/01/17 17:15 Folic Acid 1 mg PO BEDTIME Thiamine [Vitamin B-1] 100 mg PO BEDTIME 10/02/17 10:49 Consult to Physical Therapy [PT Evaluation and Treatment] [CONS] Routine 10/02/17 11:06 Ready for Discharge [RC] PER UNIT ROUTINE 10/02/17 11:45 Lactulose [Chronulac] 10 gm PO BID - Plan Plan:: 1. Abdominal Ascites - SBP ruled out with paracentesis. Discontinue cefepime. 2. Acute Alcohol Withdrawal -on the regular floor, not requiring Ativan. 3. Anemia/Thrombocytopenia -appears to be stable 4. Hypomagnesemia - Mangnesium 2g IV once given. Recheck in AM. 5. Headache/confusion- lactulose 10 mg by mouth twice a day. His ammonia level is normal, though will see if having a bowel movement can help with his mental status and headache. 6. Anticipate discharge tomorrow. This patient was not cleared by physical therapy for ambulation as he was complaining that he is unable to get around on his own. He spoke to case management, who recommended that he go to [facility] for rehabilitation which he has declined.
[2017-10-02] MEDS: Folic Acid 1 MG Tab PO SCH (20:51)
[2017-10-02] MEDS: Ferrous Sulfate 325 MG Tab PO SCH (20:51)
[2017-10-02] MEDS: Thiamine 100 MG Tab PO SCH (20:51)
[2017-10-03] MEDS ORDERED: Magnesium Sulfate/Water 2 GM in Premix Bag 1 BAG IV ONE (07:53)
[2017-10-03] MEDS: Spironolactone 25 MG Tab PO SCH (08:34)
[2017-10-03] MEDS: Pantoprazole 40 MG Tab.CR PO SCH (08:35)
[2017-10-03] MEDS: Ferrous Sulfate 325 MG Tab PO SCH (08:35)
[2017-10-03] MEDS: Potassium Chloride 20 MEQ Tab.ER PO SCH (08:36)
[2017-10-03] MEDS: Furosemide 40 MG Tab PO SCH (08:36)
[2017-10-03] MEDS: Lactulose Soln 10 GM/15 ML 15 ML UD Cup PO SCH (08:42)
[2017-10-03] MEDS: Nicotine 14 MG/24 Hr Patch TRDERM SCH (08:53)
[2017-10-03 09:06] VITALS: BP 106/71
--- NOTE | 2017-10-03 16:41 | PCM.DCSUM1 ---
<Allen Godoy - Last Filed: 10/03/17 16:36> Discharge Summary - Hospital Course Free Text/Narrative:: Admission date September 29, 2017 Discharge date October 03, 2017 Admission diagnosis #1. Acute alcohol intoxication #2. Abdominal ascites #3. Anemia/thrombocytopenia #4. Hypomagnesemia Discharge diagnosis #1. Acute alcohol withdrawals-resolved #2. Abdominal ascites status post paracentesis #3. Anemia/thrombocytopenia that's stable #4. Hypomagnesemia Hospital course: 52-year-old male with long-standing history of chronic alcoholism presented to the emergency department complaining of abdominal pain and distention. He was admitted to the ICU for acute alcohol withdrawal management along with workup for possible SBP. Patient was given Ativan as per protocol for his withdrawals. He was started on Rocephin for SBP prophylaxis. In regards to his ascites, we did a paracentesis to rule out SBP. As per the radiology note, 3 L of yellow clear fluid was drained. It was determined that this patient does not have SBP. Rocephin was then discontinued. Abdominal CT scan indicated moderate ascites and there is cirrhosis of the liver. Patient was then transferred to the regular floor once he was deemed safe and was no longer acutely withdrawing. Patient was complaining of a headache and confusion. He was then started on oral lactulose. At the time of discharge, he was complaining of any signs of withdrawal and was adamant about leaving. The day prior to leaving, he told me that he felt wobbly and couldn't walk. Physical therapy evaluated him, deemed him unsafe to walk so he wasn't discharged. The next day, he was seen walking around the hospital without any difficulty on his own. He also refused any sort of blood draws and wanted to leave as soon as possible. He also refused magnesium IV for his hypomagnesemia. Her prescription for lactulose was given to him and he was advised to take this as needed if he was constipated. He was advised to resume his home medications. Follow-up: With primary care provider within one week. Advised to return to seek further medical care if he has signs of acute withdrawal again. Advised to refrain from alcohol. Disposition: Home - Discharge Data Discharge Date: 10/03/17 Discharge Disposition: Home, Self-Care 01 Condition: Fair - Discharge Diagnosis/Problem(s) (1) Alcoholism SNOMED Code(s): 9359128 ICD Code: F10.20 - ALCOHOL DEPENDENCE, UNCOMPLICATED Status: Acute (2) Spontaneous bacterial peritonitis SNOMED Code(s): 18410810 ICD Code: K65.2 - SPONTANEOUS BACTERIAL PERITONITIS Status: Acute (3) Abdominal pain SNOMED Code(s): 31102705 ICD Code: R10.9 - UNSPECIFIED ABDOMINAL PAIN Status: Acute QualifierTitle: Abdominal location: upper abdomen, unspecified Qualified Code(s): R10.10 - Upper abdominal pain, unspecified (4) Alcohol intoxication SNOMED Code(s): 35735784 ICD Code: F10.929 - ALCOHOL USE, UNSPECIFIED WITH INTOXICATION, UNSPECIFIED Status: Acute QualifierTitle: Complication of substance-induced condition: uncomplicated Qualified Code(s): F10.920 - Alcohol use, unspecified with intoxication, uncomplicated (5) Anemia SNOMED Code(s): 948904977 ICD Code: D64.9 - ANEMIA, UNSPECIFIED Status: Acute QualifierTitle: Anemia type: unspecified type Qualified Code(s): D64.9 - Anemia, unspecified (6) Thrombocytopenia SNOMED Code(s): 292811509 ICD Code: D69.6 - THROMBOCYTOPENIA, UNSPECIFIED Status: Acute Priority: Medium - Patient Summary/Data Consults: Consultations 10/02/17 10:49 Consult to Physical Therapy [PT Evaluation and Treatment] [CONS] Routine - Patient Instructions Diet: No Alcoholic Beverages Activity: As Tolerated Driving: May Drive Today Other/Special Instructions: Withdrawals such as shakiness, hallucinations, seizures, nausea or vomiting - Discharge Plan Prescriptions/Med Rec: Lactulose 20 gm PO DAILY PRN #473 ml PRN Reason: Constipation Home Medications: Home Meds Ferrous Sulfate 325 mg PO BID 07/18/17 [History] Furosemide 40 mg PO BID 07/18/17 [History] Nadolol 20 mg PO BID 07/18/17 [History] Pantoprazole [ProTONIX] 40 mg PO DAILY 07/18/17 [History] Potassium Chloride 20 meq PO DAILY 07/18/17 [History] Spironolactone 100 mg PO BID 07/18/17 [History] Lactulose 20 gm PO DAILY PRN #473 ml 10/03/17 [Rx] Patient Handouts: Alcohol Intoxication, [id number] Referrals: Lupe Hager NP [Ordering Only Provider] - 10/08/17 10:15 am - Discharge Summary/Plan Comment DC Time >30 min.: No Discharge Summary/Plan Comment: Admission date September 29, 2017 Discharge date October 03, 2017 Admission diagnosis #1. Acute alcohol intoxication #2. Abdominal ascites #3. Anemia/thrombocytopenia #4. Hypomagnesemia Discharge diagnosis #1. Acute alcohol withdrawals-resolved #2. Abdominal ascites status post paracentesis #3. Anemia/thrombocytopenia that's stable #4. Hypomagnesemia Hospital course: 52-year-old male with long-standing history of chronic alcoholism presented to the emergency department complaining of abdominal pain and distention. He was admitted to the ICU for acute alcohol withdrawal management along with workup for possible SBP. Patient was given Ativan as per protocol for his withdrawals. He was started on Rocephin for SBP prophylaxis. In regards to his ascites, we did a paracentesis to rule out SBP. As per the radiology note, 3 L of yellow clear fluid was drained. It was determined that this patient does not have SBP. Rocephin was then discontinued. Abdominal CT scan indicated moderate ascites and there is cirrhosis of the liver. Patient was then transferred to the regular floor once he was deemed safe and was no longer acutely withdrawing. Patient was complaining of a headache and confusion. He was then started on oral lactulose. At the time of discharge, he was complaining of any signs of withdrawal and was adamant about leaving. The day prior to leaving, he told me that he felt wobbly and couldn't walk. Physical therapy evaluated him, deemed him unsafe to walk so he wasn't discharged. The next day, he was seen walking around the hospital without any difficulty on his own. He also refused any sort of blood draws and wanted to leave as soon as possible. He also refused magnesium IV for his hypomagnesemia. Her prescription for lactulose was given to him and he was advised to take this as needed if he was constipated. He was advised to resume his home medications. Follow-up: With primary care provider within one week. Advised to return to seek further medical care if he has signs of acute withdrawal again. Advised to refrain from alcohol. Disposition: Home - Patient Data Vitals - Most Recent: Last Vital Signs Temp 36.8 C 10/03/17 08:00 Pulse 83 10/03/17 08:00 Resp 18 10/03/17 08:00 BP 106/71 10/03/17 08:00 Pulse Ox 97 10/03/17 08:00 Weight - Most Recent: 91.036 kg I&O - Last 24 hours: Intake & Output 10/03/17 10/03/17 10/03/17 06:59 14:59 22:59 Intake Total 1120 50 Output Total 725 Balance 395 50 TAYLOR Results - Last 24 hrs: Microbiology 09/30/17 12:20 Gram Stain - Final Peritoneal Fluid Body Fluid Culture - Final NO GROWTH AFTER 3 DAYS Med Orders - Current: Current Medications Discontinued Medications Bisacodyl (Dulcolax) 5 mg PO DAILY PRN PRN Reason: Constipation Bisacodyl (Dulcolax) 10 mg PO ASDIRECTED PRN PRN Reason: Constipation Ferrous Sulfate (Ferrous Sulfate) 325 mg PO BID [facility] Last Admin: 10/03/17 08:35 Dose: 325 mg Folic Acid (Folic Acid) 1 mg PO BEDTIME [facility] Last Admin: 10/02/17 20:51 Dose: 1 mg Furosemide (Lasix) 40 mg PO BIDDIURETIC [facility] Last Admin: 10/03/17 08:36 Dose: 40 mg Hydromorphone HCl (Dilaudid) 1 mg IVPUSH ONETIME ONE Stop: 09/29/17 19:20 Last Admin: 09/29/17 19:32 Dose: 1 mg Hydromorphone HCl (Dilaudid) 1 mg IVPUSH Q2H PRN PRN Reason: Pain (severe 7-10) Last Admin: 09/30/17 21:50 Dose: 1 mg Sodium Chloride (Normal Saline) 1,000 mls @ 999 mls/hr IV STAT ONE Stop: 09/29/17 20:19 Last Admin: 09/29/17 19:32 Dose: 999 mls/hr Piperacillin Sod/Tazobactam (Sod 3.375 gm/ Sodium Chloride) 50 mls @ 100 mls/ hr IV Q6H [facility] Last Admin: 09/30/17 11:11 Dose: Not Given Multivitamins/Minerals 10 ml/Thiamine HCl 100 mg/ Folic Acid 1 mg/ Sodium Chloride 1,011.2 mls @ 100 mls/hr IV DAILY ONE Stop: 09/30/17 08:31 Last Admin: 09/29/17 23:15 Dose: 100 mls/hr Magnesium Sulfate 2 gm/ Premix 50 mls @ 25 mls/hr IV ONETIME ONE Stop: 09/30/17 09:58 Last Admin: 09/30/17 08:21 Dose: 25 mls/hr Cefotaxime Sodium 2 gm/ Sodium (Chloride) 100 mls @ 200 mls/hr IV Q8H [facility] Last Admin: 10/01/17 05:39 Dose: 200 mls/hr Magnesium Sulfate 2 gm/ Premix 50 mls @ 25 mls/hr IV ONETIME ONE Stop: 10/01/17 10:02 Last Admin: 10/01/17 09:20 Dose: 25 mls/hr Magnesium Sulfate 2 gm/ Premix 50 mls @ 25 mls/hr IV ONETIME ONE Stop: 10/02/17 09:54 Last Admin: 10/02/17 08:58 Dose: 25 mls/hr Magnesium Sulfate 2 gm/ Premix 50 mls @ 50 mls/hr IV ONETIME ONE Stop: 10/03/17 08:52 Last Admin: 10/03/17 08:43 Dose: 50 mls/hr Iopamidol (Isovue Multipack-370 (76%)) 100 ml IVPUSH ONETIME STA Stop: 09/29/17 19:28 Last Admin: 09/29/17 19:28 Dose: 100 ml Lactulose (Chronulac) 10 gm PO BID [facility] Last Admin: 10/03/17 08:42 Dose: 10 gm Lorazepam (Ativan) 0 mg IVPUSH Q2H PRN; Protocol PRN Reason: Anxiety Last Admin: 10/01/17 00:03 Dose: 1 mg Nadolol (Naldol) 20 mg PO BID [facility] Last Admin: 10/03/17 08:37 Dose: 20 mg Nicotine (Habitrol) 14 mg TRDERM DAILY [facility] Last Admin: 10/03/17 08:53 Dose: Not Given Non-Formulary Medication (Nadolol [Nadolol]) 1 tab PO BID [facility] Non-Formulary Medication (Potassium Chloride [Potassium Chloride]) 1 tab PO DAILY [facility] Ondansetron HCl (Zofran) 4 mg IVPUSH ONETIME ONE Stop: 09/29/17 19:20 Last Admin: 09/29/17 19:32 Dose: 4 mg Ondansetron HCl (Zofran) 4 mg IVPUSH Q4H PRN PRN Reason: Nausea Last Admin: 09/30/17 09:25 Dose: 4 mg Pantoprazole Sodium (Protonix) 40 mg PO DAILY [facility] Last Admin: 10/03/17 08:35 Dose: 40 mg Potassium Chloride (Klor-Con M20) 20 meq PO DAILY [facility] Last Admin: 10/03/17 08:36 Dose: 20 meq Spironolactone (Aldactone) 100 mg PO BID [facility] Last Admin: 10/03/17 08:34 Dose: 100 mg Temazepam (Restoril) 15 mg PO BEDTIME PRN PRN Reason: Sleep Last Admin: 10/02/17 21:13 Dose: 15 mg Thiamine HCl (Vitamin B-1) 100 mg PO BEDTIME [facility] Last Admin: 10/02/17 20:51 Dose: 100 mg *Q Meaningful Use (DIS) - VTE *Q VTE Criteria *Q: - Stroke *Q Stroke Criteria *Q: - AMI *Q AMI Criteria *Q: <Noah Gottlieb - Last Filed: 10/03/17 19:41> Discharge Summary - Patient Summary/Data Consults: Consultations 10/02/17 10:49 Consult to Physical Therapy [PT Evaluation and Treatment] [CONS] Routine - Patient Data Vitals - Most Recent: Last Vital Signs Temp 36.8 C 10/03/17 08:00 Pulse 83 10/03/17 08:00 Resp 18 10/03/17 08:00 BP 106/71 10/03/17 08:00 Pulse Ox 97 10/03/17 08:00 I&O - Last 24 hours: Intake & Output 10/03/17 10/03/17 10/03/17 06:59 14:59 22:59 Intake Total 1120 50 Output Total 725 Balance 395 50 TAYLOR Results - Last 24 hrs: Microbiology 09/30/17 12:20 Gram Stain - Final Peritoneal Fluid Body Fluid Culture - Final NO GROWTH AFTER 3 DAYS Med Orders - Current: Current Medications Discontinued Medications Bisacodyl (Dulcolax) 5 mg PO DAILY PRN PRN Reason: Constipation Bisacodyl (Dulcolax) 10 mg PO ASDIRECTED PRN PRN Reason: Constipation Ferrous Sulfate (Ferrous Sulfate) 325 mg PO BID [facility] Last Admin: 10/03/17 08:35 Dose: 325 mg Folic Acid (Folic Acid) 1 mg PO BEDTIME [facility] Last Admin: 10/02/17 20:51 Dose: 1 mg Furosemide (Lasix) 40 mg PO BIDDIURETIC [facility] Last Admin: 10/03/17 08:36 Dose: 40 mg Hydromorphone HCl (Dilaudid) 1 mg IVPUSH ONETIME ONE Stop: 09/29/17 19:20 Last Admin: 09/29/17 19:32 Dose: 1 mg Hydromorphone HCl (Dilaudid) 1 mg IVPUSH Q2H PRN PRN Reason: Pain (severe 7-10) Last Admin: 09/30/17 21:50 Dose: 1 mg Sodium Chloride (Normal Saline) 1,000 mls @ 999 mls/hr IV STAT ONE Stop: 09/29/17 20:19 Last Admin: 09/29/17 19:32 Dose: 999 mls/hr Piperacillin Sod/Tazobactam (Sod 3.375 gm/ Sodium Chloride) 50 mls @ 100 mls/ hr IV Q6H [facility] Last Admin: 09/30/17 11:11 Dose: Not Given Multivitamins/Minerals 10 ml/Thiamine HCl 100 mg/ Folic Acid 1 mg/ Sodium Chloride 1,011.2 mls @ 100 mls/hr IV DAILY ONE Stop: 09/30/17 08:31 Last Admin: 09/29/17 23:15 Dose: 100 mls/hr Magnesium Sulfate 2 gm/ Premix 50 mls @ 25 mls/hr IV ONETIME ONE Stop: 09/30/17 09:58 Last Admin: 09/30/17 08:21 Dose: 25 mls/hr Cefotaxime Sodium 2 gm/ Sodium (Chloride) 100 mls @ 200 mls/hr IV Q8H [facility] Last Admin: 10/01/17 05:39 Dose: 200 mls/hr Magnesium Sulfate 2 gm/ Premix 50 mls @ 25 mls/hr IV ONETIME ONE Stop: 10/01/17 10:02 Last Admin: 10/01/17 09:20 Dose: 25 mls/hr Magnesium Sulfate 2 gm/ Premix 50 mls @ 25 mls/hr IV ONETIME ONE Stop: 10/02/17 09:54 Last Admin: 10/02/17 08:58 Dose: 25 mls/hr Magnesium Sulfate 2 gm/ Premix 50 mls @ 50 mls/hr IV ONETIME ONE Stop: 10/03/17 08:52 Last Admin: 10/03/17 08:43 Dose: 50 mls/hr Iopamidol (Isovue Multipack-370 (76%)) 100 ml IVPUSH ONETIME STA Stop: 09/29/17 19:28 Last Admin: 09/29/17 19:28 Dose: 100 ml Lactulose (Chronulac) 10 gm PO BID [facility] Last Admin: 10/03/17 08:42 Dose: 10 gm Lorazepam (Ativan) 0 mg IVPUSH Q2H PRN; Protocol PRN Reason: Anxiety Last Admin: 10/01/17 00:03 Dose: 1 mg Nadolol (Naldol) 20 mg PO BID [facility] Last Admin: 10/03/17 08:37 Dose: 20 mg Nicotine (Habitrol) 14 mg TRDERM DAILY [facility] Last Admin: 10/03/17 08:53 Dose: Not Given Non-Formulary Medication (Nadolol [Nadolol]) 1 tab PO BID [facility] Non-Formulary Medication (Potassium Chloride [Potassium Chloride]) 1 tab PO DAILY [facility] Ondansetron HCl (Zofran) 4 mg IVPUSH ONETIME ONE Stop: 09/29/17 19:20 Last Admin: 09/29/17 19:32 Dose: 4 mg Ondansetron HCl (Zofran) 4 mg IVPUSH Q4H PRN PRN Reason: Nausea Last Admin: 09/30/17 09:25 Dose: 4 mg Pantoprazole Sodium (Protonix) 40 mg PO DAILY [facility] Last Admin: 10/03/17 08:35 Dose: 40 mg Potassium Chloride (Klor-Con M20) 20 meq PO DAILY [facility] Last Admin: 10/03/17 08:36 Dose: 20 meq Spironolactone (Aldactone) 100 mg PO BID [facility] Last Admin: 10/03/17 08:34 Dose: 100 mg Temazepam (Restoril) 15 mg PO BEDTIME PRN PRN Reason: Sleep Last Admin: 10/02/17 21:13 Dose: 15 mg Thiamine HCl (Vitamin B-1) 100 mg PO BEDTIME [facility] Last Admin: 10/02/17 20:51 Dose: 100 mg *Q Meaningful Use (DIS) - VTE *Q VTE Criteria *Q: - Stroke *Q Stroke Criteria *Q: - AMI *Q AMI Criteria *Q: - Free Text/Narrative Note: I have examined the patient. I have discussed findings and treatment plan with resident. I agree with the assessment and plan outlined in the following resident's note.
== END 2017-10-03 10:20 | disposition home or self-care (01) | DRG 896 ==
LOC: MW.ED 19:06 → MW.ICU 22:23 → UNDOADMIN 22:23 → MW.ICU 22:25 → MW.MS 10-01 18:26
PROVIDERS: ADMIT Internal Medicine; ATTEND Internal Medicine
PROC: 0W9G3ZZ Drainage of Peritoneal Cavity, Percutaneous Approach (ICD-10-PCS; principal; 2017-09-30)
DX: F10.229 Alcohol dependence with intoxication, unspecified (principal); K65.2 Spontaneous bacterial peritonitis; F10.239 Alcohol dependence with withdrawal, unspecified; K70.31 Alcoholic cirrhosis of liver with ascites; D64.9 Anemia, unspecified; D69.6 Thrombocytopenia, unspecified; E83.42 Hypomagnesemia; R51 Headache; R41.0 Disorientation, unspecified; K59.00 Constipation, unspecified; R10.10 Upper abdominal pain, unspecified; Z79.899 Other long term (current) drug therapy; F17.200 Nicotine dependence, unspecified, uncomplicated
CPT/HCPCS: 36415; 49083; 74177; 74177-26; 80053; 81001; 82140; 82150; 82945; 83615; 83690; 83735; 83986; 84157; 85025; 85610; 87040; 87070; 87205; 88104; 88313; 89050; 96361; 96365; 96375; 97110-GP; 97161-GP; 99283; 99285-25; A9270-GY; J0698; J1170; J2060; J2405; J2543; J3411; J3475; J7030; J7040; J7050; Q9967

== ENCOUNTER 2017-10-15 14:58 | Emergency (ER) | payer MEDICAID ==
[2017-10-15] MEDS ORDERED: Sodium Chloride 0.9% 1,000 ML IV ONE (15:39)
--- NOTE | 2017-10-15 15:41 | EDM.PDOC ---
ED HPI GENERAL MEDICAL PROBLEM - General Chief Complaint: General Stated Complaint: MEDICAL CLEARANCE Time Seen by Provider: 10/15/17 15:39 Source of Information: Reports: Patient, Other History Limitations: Reports: No Limitations - History of Present Illness INITIAL COMMENTS - FREE TEXT/NARRATIVE: History of present illness: [52-year-old male brought in by long-term staff with desire for medical clearance. There is a court order for patient to do inpatient detox which they have a bed at the state for him if he is medically stable. Patient has a history of GI bleeding as well as catastrophically high alcohol levels and they' re concerned that he would be stable for admission.] Review of systems: As per history of present illness and below otherwise all systems reviewed and negative. Past medical history: As per history of present illness and as reviewed below otherwise noncontributory. Surgical history: As per history of present illness and as reviewed below otherwise noncontributory. Social history: No reported history of drug or alcohol abuse. Family history: As per history of present illness and as reviewed below otherwise noncontributory. Physical exam: HEENT: Atraumatic, normocephalic, pupils reactive, negative for conjunctival pallor or scleral icterus, mucous membranes moist, throat clear, neck supple, nontender, trachea midline. Lungs: Clear to auscultation, breath sounds equal bilaterally, chest nontender. Heart: S1S2, regular, negative for clicks, rubs, or JVD. Abdomen: Soft, nondistended, nontender. Negative for masses or hepatosplenomegaly. Negative for costovertebral tenderness. Pelvis: Stable nontender. Genitourinary: Deferred. Rectal: Deferred. Extremities: Atraumatic, negative for cords or calf pain. Neurovascular unremarkable. Neuro: Awake, alert, oriented. Cranial nerves II through XII unremarkable. Cerebellum unremarkable. Motor and sensory unremarkable throughout. Exam nonfocal. Patient was to be evaluated for medical clearance for GI bleed/H&H stability secondary to history of GI bleeding. As well as level of intoxication. Diagnostics: [CBC, CMP, drug screen] Therapeutics: [IV fluid] Impression: [Alcohol intoxication] Plan: [Cleared for penitentiary] Definitive disposition and diagnosis as appropriate pending reevaluation and review of above. Upper Abdominal Pain Score (Numeric/FACES): 6 - Related Data Allergies Allergy/AdvReac Type Severity Reaction Status Date / Time No Known Allergies Allergy Verified 10/15/17 15:13 Home Meds: Home Meds Ferrous Sulfate 325 mg PO BID 07/18/17 [History] Furosemide 40 mg PO BID 07/18/17 [History] Nadolol 20 mg PO BID 07/18/17 [History] Pantoprazole [ProTONIX] 40 mg PO DAILY 07/18/17 [History] Potassium Chloride 20 meq PO DAILY 07/18/17 [History] Spironolactone 100 mg PO BID 07/18/17 [History] Lactulose 20 gm PO DAILY PRN #473 ml 10/03/17 [Rx] Past Medical History - Past Health History Medical/Surgical History: Denies Medical/Surgical History HEENT History: Reports: None Cardiovascular History: Reports: Hypertension Respiratory History: Reports: None Gastrointestinal History: Reports: GERD, GI Bleed Genitourinary History: Reports: None Musculoskeletal History: Reports: None Neurological History: Reports: None Psychiatric History: Reports: Addiction, Anxiety Endocrine/Metabolic History: Reports: None Hematologic History: Reports: None Immunologic History: Reports: None Oncologic (Cancer) History: Reports: None Dermatologic History: Reports: None - Infectious Disease History Infectious Disease History: Reports: Hepatitis C - Past Surgical History Head Surgeries/Procedures: Reports: None Cardiovascular Surgical History: Reports: None Respiratory Surgical History: Reports: None GI Surgical History: Reports: Colonoscopy, EGD, Other (See Below) Other GI Surgeries/Procedures: "clamps in stomach 5x" Male Surgical History: Reports: None Musculoskeletal Surgical History: Reports: None Social & Family History - Family History Family Medical History: Noncontributory - Tobacco Use Smoking Status *Q: Current Every Day Smoker Years of Tobacco use: 40 Packs/Tins Daily: 0.5 Used Tobacco, but Quit: No Second Hand Smoke Exposure: No - Caffeine Use Caffeine Use: Reports: Coffee, Energy Drinks, Soda, Tea - Alcohol Use Days Per Week of Alcohol Use: 7 Number of Drinks Per Day: 12 Total Drinks Per Week: 84 - Recreational Drug Use Recreational Drug Use: No - Living Situation & Occupation Living situation: Reports: with Family, Other Occupation: Unemployed ED ROS GENERAL - Review of Systems Review Of Systems: See Below (History of present illness) ED EXAM, GENERAL - Physical Exam Exam: See Below (See history of present illness) Course - Vital Signs Last Recorded V/S: Last Vital Signs Temp 36.7 C 10/15/17 15:15 Pulse 79 10/15/17 15:15 Resp 16 10/15/17 15:15 BP 101/64 10/15/17 15:15 Pulse Ox 96 10/15/17 15:15 - Orders/Labs/Meds Orders: Active Orders 24 hr Category Date Time Status Ondansetron [Zofran ODT] Med 10/15/17 17:16 Ordered 8 mg PO ONETIME PRN Medication Orders Ondansetron HCl (Zofran Odt) 8 mg PO ONETIME PRN PRN Reason: Nausea/Vomiting Labs: Laboratory Tests 10/15/17 10/15/17 10/15/17 Range/Units 15:50 15:50 15:50 WBC 3.53 L (4.0-11.0) K/uL RBC 3.94 L (4.50-5.90) M/uL Hgb 10.6 L (13.0-17.0) g/dL Hct 34.2 L (38.0-50.0) % MCV 86.8 (80.0-98.0) fL MCH 26.9 L (27.0-32.0) pg MCHC 31.0 (31.0-37.0) g/dL RDW Std Deviation 58.1 (28.0-62.0) fl RDW Coeff of Satish 18 H (11.0-15.0) % Plt Count 86 L (150-400) K/uL MPV 9.30 (7.40-12.00) fL Neut % (Auto) 60.9 (48.0-80.0) % Lymph % (Auto) 26.9 (16.0-40.0) % Hood % (Auto) 10.8 (0.0-15.0) % Eos % (Auto) 0.6 (0.0-7.0) % Baso % (Auto) 0.8 (0.0-1.5) % Neut # (Auto) 2.2 (1.4-5.7) K/uL Lymph # (Auto) 1.0 (0.6-2.4) K/uL Hood # (Auto) 0.4 (0.0-0.8) K/uL Eos # (Auto) 0.0 (0.0-0.7) K/uL Baso # (Auto) 0.0 (0.0-0.1) K/uL Nucleated RBC % 0.0 /100WBC Nucleated RBCs # 0 K/uL Sodium 137 (136-146) mmol/L Potassium 4.5 (3.5-5.1) mmol/L Chloride 106 (98-110) mmol/L Carbon Dioxide 19 L (21-31) mmol/L BUN 6 (6.0-23.0) mg/dL Creatinine 0.7 (0.6-1.5) mg/dL Est Cr Clr Drug Dosing 127.46 mL/min Estimated GFR (MDRD) > 60.0 ml/min Glucose 149 H (60-110) mg/dL Calcium 8.7 L (8.8-10.8) mg/dL Total Bilirubin 1.9 H (0.1-1.5) mg/dL AST 90 H (5-40) IU/L ALT 62 H (8-54) IU/L Alkaline Phosphatase 128 (40-150) Total Protein 8.0 (6.0-8.0) g/dL Albumin 3.8 (3.5-5.0) g/dL Globulin 4.2 H (2.0-3.5) g/dL Albumin/Globulin Ratio 0.9 L (1.3-2.8) Urine Opiates Screen (NEGATIVE) Ur Oxycodone Screen (NEGATIVE) Urine Methadone Screen (NEGATIVE) Ur Barbiturates Screen (NEGATIVE) Ur Phencyclidine Scrn (NEGATIVE) Ur Amphetamine Screen (NEGATIVE) U Methamphetamines Scrn (NEGATIVE) U Benzodiazepines Scrn (NEGATIVE) U Cocaine Metab Screen (NEGATIVE) U Marijuana (THC) Screen (NEGATIVE) Ethyl Alcohol 358.8 mg/dL 10/15/17 Range/Units 15:55 WBC (4.0-11.0) K/uL RBC (4.50-5.90) M/uL Hgb (13.0-17.0) g/dL Hct (38.0-50.0) % MCV (80.0-98.0) fL MCH (27.0-32.0) pg MCHC (31.0-37.0) g/dL RDW Std Deviation (28.0-62.0) fl RDW Coeff of Satish (11.0-15.0) % Plt Count (150-400) K/uL MPV (7.40-12.00) fL Neut % (Auto) (48.0-80.0) % Lymph % (Auto) (16.0-40.0) % Hood % (Auto) (0.0-15.0) % Eos % (Auto) (0.0-7.0) % Baso % (Auto) (0.0-1.5) % Neut # (Auto) (1.4-5.7) K/uL Lymph # (Auto) (0.6-2.4) K/uL Hood # (Auto) (0.0-0.8) K/uL Eos # (Auto) (0.0-0.7) K/uL Baso # (Auto) (0.0-0.1) K/uL Nucleated RBC % /100WBC Nucleated RBCs # K/uL Sodium (136-146) mmol/L Potassium (3.5-5.1) mmol/L Chloride (98-110) mmol/L Carbon Dioxide (21-31) mmol/L BUN (6.0-23.0) mg/dL Creatinine (0.6-1.5) mg/dL Est Cr Clr Drug Dosing mL/min Estimated GFR (MDRD) ml/min Glucose (60-110) mg/dL Calcium (8.8-10.8) mg/dL Total Bilirubin (0.1-1.5) mg/dL AST (5-40) IU/L ALT (8-54) IU/L Alkaline Phosphatase (40-150) Total Protein (6.0-8.0) g/dL Albumin (3.5-5.0) g/dL Globulin (2.0-3.5) g/dL Albumin/Globulin Ratio (1.3-2.8) Urine Opiates Screen NEGATIVE (NEGATIVE) Ur Oxycodone Screen NEGATIVE (NEGATIVE) Urine Methadone Screen NEGATIVE (NEGATIVE) Ur Barbiturates Screen NEGATIVE (NEGATIVE) Ur Phencyclidine Scrn NEGATIVE (NEGATIVE) Ur Amphetamine Screen NEGATIVE (NEGATIVE) U Methamphetamines Scrn NEGATIVE (NEGATIVE) U Benzodiazepines Scrn NEGATIVE (NEGATIVE) U Cocaine Metab Screen NEGATIVE (NEGATIVE) U Marijuana (THC) Screen NEGATIVE (NEGATIVE) Ethyl Alcohol mg/dL Meds: Medications Generic Name Dose Route Start Last Admin Trade Name Freq PRN Reason Stop Dose Admin Ondansetron HCl 8 mg 10/15/17 17:16 Zofran Odt PO ONETIME PRN Nausea/Vomiting Discontinued Medications Generic Name Dose Route Start Last Admin Trade Name Freq PRN Reason Stop Dose Admin Sodium Chloride 1,000 mls @ 999 mls/hr 10/15/17 15:39 10/15/17 16:16 Normal Saline IV 10/15/17 16:39 999 mls/hr STAT ONE Administration Departure - Departure Time of Disposition: 17:18 Disposition: Home, Self-Care 01 Condition: Good Clinical Impression: Alcohol intoxication Qualifiers: Complication of substance-induced condition: uncomplicated Qualified Code(s): F10.920 - Alcohol use, unspecified with intoxication, uncomplicated - Discharge Information Referrals: PCP,Unknown [Primary Care Provider] - Forms: ED Department Discharge Additional Instructions: The following information is given to patients seen in the emergency department who are being discharged to home. This information is to outline your options for follow-up care. We provide all patients seen in our emergency department with a follow-up referral. The need for follow-up, as well as the timing and circumstances, are variable depending upon the specifics of your emergency department visit. If you don't have a primary care physician on staff, we will provide you with a referral. We always advise you to contact your personal physician following an emergency department visit to inform them of the circumstance of the visit and for follow-up with them and/or the need for any referrals to a consulting specialist. The emergency department will also refer you to a specialist when appropriate. This referral assures that you have the opportunity for follow-up care with a specialist. All of these measure are taken in an effort to provide you with optimal care, which includes your follow-up. Under all circumstances we always encourage you to contact your private physician who remains a resource for coordinating your care. When calling for follow-up care, please make the office aware that this follow-up is from your recent emergency room visit. If for any reason you are refused follow-up, please contact the [facility] Emergency Department at and asked to speak to the emergency department charge nurse. Patient does have an elevated alcohol blood level return patient if there is any signs of bloody vomit or bloody stool Patient is currently medically clear for incarceration - My Orders Last 24 Hours: My Active Orders 10/15/17 17:16 Ondansetron [Zofran ODT] 8 mg PO ONETIME PRN - Assessment/Plan Last 24 Hours: My Active Orders 10/15/17 17:16 Ondansetron [Zofran ODT] 8 mg PO ONETIME PRN
[2017-10-15 16:32] LABS: CHLORIDE,CL 106 mmol/L (98-110); SODIUM,NA 137 mmol/L (136-146)
[2017-10-15] MEDS ORDERED: Ondansetron 4 MG Tab.DIS PO PRN (17:16)
[2017-10-15 17:23] VITALS: BP 110/62
== END 2017-10-15 17:32 | disposition home or self-care (01) ==
LOC: MW.ED 14:58
DX: F10.120 Alcohol abuse with intoxication, uncomplicated (principal); F17.210 Nicotine dependence, cigarettes, uncomplicated; I10 Essential (primary) hypertension; Z79.899 Other long term (current) drug therapy; Y90.8 Blood alcohol level of 240 mg/100 ml or more
CPT/HCPCS: 36415; 80053; 80305; 85025; 99283; A9270; G0480; J7040